=== PATIENT | male | born 1955 | race Caucasian/White ===

== ENCOUNTER 2017-08-18 11:34 | Inpatient (IN) | payer MEDICARE, MEDICAID ==
[2017-08-18 12:09] LABS: BASO # 0.1 K/uL (0.0-0.2); BASO % 1.3 % (0.0-2.0); EOS # 0.4 K/uL (0.0-0.7); EOS % 3.8 % (0.0-4.0); HEMOGLOBIN 12.9 g/dL (12.0-18.0); LYMPH # 1.4 K/uL (1.0-4.3); MEAN CELL VOLUME 84.1 fL (80.0-94.0); MEAN CORPUSCULAR HEMOGLOBIN 28.4 pg (27.0-31.0); MEAN CORPUSCULAR HGB CONC 33.8 g/dL (33.0-37.0); MEAN PLATELET VOLUME 6.9 fL (7.2-11.7); MONO # 0.9 K/uL (0.0-0.8); MONO % 8.6 % (0.0-10.0); NEUT # 7.7 K/uL (1.8-7.0); NEUT % 73.3 % (50.0-75.0); RBC 4.55 Mil/uL (4.40-5.90); RED CELL DISTRIBUTION WIDTH 15.5 % (11.5-14.5); WHITE BLOOD COUNT 10.5 K/uL (4.8-10.8)
[2017-08-18 12:30] LABS: ALB/GLOB RATIO 1.4 (1.0-2.1); ALT/SGPT 80 U/L (21-72); AST/SGOT 62 U/L (17-59); BLOOD UREA NITROGEN 10 mg/dL (9-20); GFR AFRICAN-AMERICAN > 60; GFR NON-AFRICAN AMERICAN > 60
[2017-08-18] MEDS ORDERED: Albuterol-Ipratrop 3 mg / 0.5 (3 ml) UD INH STA (12:31)
[2017-08-18] MEDS ORDERED: MethylPREDNISolone 40 mg Vial IVP STA (12:31)
[2017-08-18 12:36] LABS: B-TYPE NATRIURETIC PEPTIDE 5830 pg/mL (0-900)
[2017-08-18] MEDS ORDERED: MethylPREDNISolone 40 mg Vial ONE (12:37)
[2017-08-18] MEDS ORDERED: Albuterol-Ipratrop 3 mg / 0.5 (3 ml) UD ONE (12:46)
--- NOTE | 2017-08-18 13:10 | RAD ---
Chest x-ray single frontal view History: Shortness of breath. Comparison: None available. Findings: Small to moderate right pleural effusion with elevated right hemidiaphragm. Moderate venous congestion. Status post median sternotomy. Enlarged ectatic aorta. Cardiomegaly. Degenerative changes in the spine and shoulders. Impression: Small to moderate right pleural effusion with elevated right hemidiaphragm. Moderate venous congestion. Status post median sternotomy. Enlarged ectatic aorta. Cardiomegaly.
--- NOTE | 2017-08-18 14:55 | C.PDOC ---
History Of Present Illness 61 y/o male, w/PMHx of HTN and CHF with 2 stents, brought to ER by ambulance complaining of chest pain and SOB which began in the morning today. Patient states that he took Aspirin in the morning today. Patient denies having cough, fever and chills. Time Seen by Provider: 08/18/17 11:41 Chief Complaint (Nursing): Chest Pain History Per: Patient History/Exam Limitations: no limitations Onset/Duration Of Symptoms: Hrs Current Symptoms Are (Timing): Still Present Severity: Moderate Past Medical History Reviewed: Historical Data, Nursing Documentation, Vital Signs Vital Signs: Last Vital Signs Temp 97.4 F L 08/20/17 07:30 Pulse 111 H 08/20/17 11:40 Resp 18 08/20/17 07:30 BP 143/83 08/20/17 09:02 Pulse Ox 97 08/20/17 12:36 - Medical History PMH: Atrial Fibrillation, Bipolar Disorder, HTN, Hyperlipidemia Other Surgeries: Hx of surgeries Family History: States: Unknown Family Hx - Social History Hx Alcohol Use: Yes Hx Substance Use: No - Immunization History Hx Tetanus Toxoid Vaccination: No Hx Influenza Vaccination: No Hx Pneumococcal Vaccination: No Review Of Systems Except As Marked, All Systems Reviewed And Found Negative. Constitutional: Negative for: Fever, Chills Cardiovascular: Positive for: Chest Pain Respiratory: Positive for: Shortness of Breath. Negative for: Cough Physical Exam - Physical Exam Appears: Non-toxic, No Acute Distress Skin: Normal Color, Warm, Dry Head: Atraumatic, Normacephalic Eye(s): bilateral: Normal Inspection Nose: Normal Oral Mucosa: Moist Neck: Supple Chest: Symmetrical Cardiovascular: Murmur (3/6 systolic ejection murmur) Respiratory: Rales (rales at bilateral bases), No Rhonchi, Wheezing (wheezing at bilateral bases) Gastrointestinal/Abdominal: Normal Exam, Bowel Sounds ((+) bowel sounds), Soft, No Tenderness, No Guarding, No Rebound Extremity: Normal ROM, Other ((+) 2 bilateral pitting edema) Neurological/Psych: Oriented x3, Normal Speech ED Course And Treatment - Laboratory Results Result Diagrams: 08/20/17 07:14 08/20/17 07:14 ECG: Interpreted By Me, Viewed By Me ECG Rhythm: Atrial Fibrillation (rate conrolled) Interpretation Of ECG: Atrial Fibrillation with T wave inversion in Leads I, AVF , IV, VIII, and V O2 Sat by Pulse Oximetry: 99 (RA) Pulse Ox Interpretation: Normal - Other Rad CXR X-Ray: Viewed By Me, Read By Radiologist Interpretation: Chest x-ray single frontal view. History: Shortness of breath. Comparison: None available. Findings: Small to moderate right pleural effusion with elevated right hemidiaphragm. Moderate venous congestion. Status post median sternotomy. Enlarged ectatic aorta. Cardiomegaly. Degenerative changes in the spine and shoulders. Impression: Small to moderate right pleural effusion with elevated right hemidiaphragm. Moderate venous congestion. Status post median sternotomy. Enlarged ectatic aorta. Cardiomegaly. Medical Decision Making Medical Decision Making: Assessment: Chest Pain, Congestive Heart Failure Plan: --Labs --ECG --CXR --Albuterol --Nebulizer --Lasix IV --Solu-Medrol IV Plan: Case discussed with . Patient will be admitted to Telemetry Observation for chest pain and CHF. Disposition Discussed With Dr.: Cecy Carvalho Counseled Patient/Family Regarding: Studies Performed, Diagnosis - Disposition Disposition: HOSPITALIZED Disposition Time: 14:54 Condition: FAIR - Clinical Impression Clinical Impression: Chest pain, Congestive heart failure - Scribe Statement The provider has reviewed the documentation as recorded by the Dominguezibseth Pérez Provider Attestation: All medical record entries made by the Dominguezibe were at my direction and personally dictated by me. I have reviewed the chart and agree that the record accurately reflects my personal performance of the history, physical exam, medical decision making, and the department course for this patient. I have also personally directed, reviewed, and agree with the discharge instructions and disposition.
[2017-08-18] MEDS ORDERED: Home Med 1 UNIT (Atorvastatin [Lipitor] 80 MG) PO SCH (18:00)
[2017-08-18] MEDS: Albuterol-Ipratrop 3 mg / 0.5 (3 ml) UD IH SCH ×2 (19:10→19:11)
[2017-08-18 20:58] LABS: CK-MB 2.82 ng/mL (0.0-3.38); TROPONIN I 0.037 ng/mL (0.00-0.120)
[2017-08-18] MEDS: MethylPREDNISolone 40 mg Vial IVP SCH (21:33)
[2017-08-19] MEDS: Albuterol-Ipratrop 3 mg / 0.5 (3 ml) UD IH SCH ×4 (01:06→19:37)
[2017-08-19 06:13] LABS: HEMOGLOBIN 13.6 g/dL (12.0-18.0); MEAN CELL VOLUME 83.1 fL (80.0-94.0); MEAN CORPUSCULAR HEMOGLOBIN 27.8 pg (27.0-31.0); MEAN CORPUSCULAR HGB CONC 33.4 g/dL (33.0-37.0); MEAN PLATELET VOLUME 7.2 fL (7.2-11.7); RBC 4.9 Mil/uL (4.40-5.90); RED CELL DISTRIBUTION WIDTH 15.5 % (11.5-14.5); WHITE BLOOD COUNT 12.7 K/uL (4.8-10.8)
[2017-08-19] MEDS ORDERED: Potassium Chloride 20 mEq ER Tab PO SCH (10:00)
--- NOTE | 2017-08-19 10:11 | CP.PCM.CON ---
History of Present Illness - History of Present Illness History of Present Illness: Pulm Consult Note- Dr. Carolina's service 61 year old male with past medical history significant for CAD, Aortic valve replacement and Bipolar disorder presents with complaints of chest pain and shortness of breath. Patient states that he had a recent OK a few weeks prior. He states that he was experiencing an overall feeling of pressure and discomfort accompanied with shortness of breath which brought him to the hospital via ambulance. Patient denies fevers, chills, nausea, vomiting, headaches, palpitations at this time.(History limited by patient's tangential speech.) PMHx- as stated above PSHX- aortic valve replacement, cardiac stent placement Fam Hx- Father with history of aortic valve dysfunction Med- Lamictal, Klonopin, Benadryl, Social- admits to smoking 1 pack of cigarettes a day since the age of 19 Allergies- Denies Hydropulper- Sandra Acidity Tester PMD- Does not follow with PMD currently Review of Systems - EENT Eyes: absent: Blurred Vision, Change in Vision - Cardiovascular Cardiovascular: Chest Pain at Rest - Respiratory Respiratory: Dyspnea on Exertion - Gastrointestinal Gastrointestinal: absent: Nausea, Vomiting - Neurological Neurological: absent: Abnormal Hearing Past Patient History - Past Social History Smoking Status: Heavy Smoker > 10 Cigarettes Daily - CARDIAC Hx Atrial Fibrillation: Yes Hx Hypertension: Yes - PSYCHIATRIC Hx Bipolar Disorder: Yes Hx Substance Use: No Meds Allergies/Adverse Reactions: Allergies Allergy/AdvReac Type Severity Reaction Status Date / Time No Known Allergies Allergy Verified 08/18/17 11:44 - Medications Medications: Current Medications Albuterol/Ipratropium (Duoneb 3 Mg/0.5 Mg (3 Ml) Ud) 3 ml IH RQ6 [facility] Last Admin: 08/19/17 07:54 Dose: 3 ml Aspirin (Aspirin Chewable) 81 mg PO DAILY [facility] Clonazepam (Klonopin) 1 mg PO QPM [facility] Last Admin: 08/18/17 18:37 Dose: 1 mg Clopidogrel Bisulfate (Plavix) 75 mg PO DAILY [facility] Diltiazem HCl (Cardizem Cd) 120 mg PO DAILY [facility] Enoxaparin Sodium (Lovenox) 40 mg SC DAILY [facility] Famotidine (Pepcid) 40 mg PO DAILY [facility] Furosemide (Lasix) 40 mg IVP Q12 [facility] Last Admin: 08/18/17 21:34 Dose: 40 mg Isosorbide Mononitrate (Imdur Er) 30 mg PO DAILY [facility] Lamotrigine (Lamictal) 100 mg PO BID [facility] Last Admin: 08/18/17 18:37 Dose: 100 mg Methylprednisolone (Solu-Medrol) 40 mg IVP Q12 [facility] Last Admin: 08/18/17 21:33 Dose: 40 mg Metoprolol Tartrate (Lopressor) 100 mg PO BID [facility] Last Admin: 08/18/17 18:37 Dose: 100 mg Rosuvastatin Calcium (Crestor) 40 mg PO HS [facility] Last Admin: 08/18/17 21:33 Dose: 40 mg Physical Exam - Constitutional Appears: Non-toxic, No Acute Distress - Head Exam Head Exam: ATRAUMATIC, NORMAL INSPECTION - Eye Exam Eye Exam: EOMI, Normal appearance Pupil Exam: NORMAL ACCOMODATION - ENT Exam ENT Exam: Mucous Membranes Moist - Neck Exam Neck exam: Positive for: Full Rom - Respiratory Exam Respiratory Exam: NORMAL BREATHING PATTERN. absent: Wheezes - Cardiovascular Exam Cardiovascular Exam: Irregular Rhythm, +S1, +S2 Additional comments: Grade 3 murmur - Extremities Exam Additional comments: bounding pulses - Neurological Exam Neurological exam: Alert, Oriented x3 - Skin Skin Exam: Normal Color, Warm Results - Vital Signs Recent Vital Signs: Last Vital Signs Temp 98.0 F 08/19/17 07:00 Pulse 78 08/19/17 07:03 Resp 18 08/19/17 07:00 BP 151/82 H 08/19/17 07:00 Pulse Ox 95 08/19/17 07:00 - Labs Result Diagrams: 08/19/17 06:03 08/18/17 12:05 Labs: Laboratory Results - last 24 hr 08/18/17 08/18/17 08/18/17 12:05 12:05 13:50 WBC 10.5 RBC 4.55 Hgb 12.9 Hct 38.3 MCV 84.1 MCH 28.4 MCHC 33.8 RDW 15.5 H Plt Count 303 MPV 6.9 L Neut % (Auto) 73.3 Lymph % (Auto) 13.0 L Long % (Auto) 8.6 Eos % (Auto) 3.8 Baso % (Auto) 1.3 Neut # (Auto) 7.7 H Lymph # (Auto) 1.4 Long # (Auto) 0.9 H Eos # (Auto) 0.4 Baso # (Auto) 0.1 Sodium 132 Potassium 5.7 H Chloride 97 L Carbon Dioxide 26 Anion Gap 15 BUN 10 Creatinine 0.9 Est GFR ( Amer) > 60 Est GFR (Non-Af Amer) > 60 Random Glucose 123 H Hemoglobin A1c Calcium 9.0 Total Bilirubin 1.1 AST 62 H ALT 80 H Alkaline Phosphatase 89 Total Creatine Kinase CK-MB (Mass) Troponin I 0.0570 NT-Pro-B Natriuret Pep 5830 H Total Protein 6.9 Albumin 4.0 Globulin 2.9 Albumin/Globulin Ratio 1.4 Triglycerides Cholesterol LDL Cholesterol Direct HDL Cholesterol TSH 3rd Generation Digoxin 3.1 H* 08/18/17 08/18/17 08/19/17 20:18 20:18 06:03 WBC 12.7 H RBC 4.90 Hgb 13.6 Hct 40.7 MCV 83.1 MCH 27.8 MCHC 33.4 RDW 15.5 H Plt Count 283 MPV 7.2 Neut % (Auto) Lymph % (Auto) Long % (Auto) Eos % (Auto) Baso % (Auto) Neut # (Auto) Lymph # (Auto) Long # (Auto) Eos # (Auto) Baso # (Auto) Sodium Potassium Chloride Carbon Dioxide Anion Gap BUN Creatinine Est GFR ( Amer) Est GFR (Non-Af Amer) Random Glucose Hemoglobin A1c 5.9 Calcium Total Bilirubin AST ALT Alkaline Phosphatase Total Creatine Kinase 64 CK-MB (Mass) 2.82 Troponin I 0.0370 NT-Pro-B Natriuret Pep Total Protein Albumin Globulin Albumin/Globulin Ratio Triglycerides 51 Cholesterol 138 LDL Cholesterol Direct 100 HDL Cholesterol 28 L TSH 3rd Generation Digoxin 08/19/17 06:03 WBC RBC Hgb Hct MCV MCH MCHC RDW Plt Count MPV Neut % (Auto) Lymph % (Auto) Long % (Auto) Eos % (Auto) Baso % (Auto) Neut # (Auto) Lymph # (Auto) Long # (Auto) Eos # (Auto) Baso # (Auto) Sodium Potassium Chloride Carbon Dioxide Anion Gap BUN Creatinine Est GFR ( Amer) Est GFR (Non-Af Amer) Random Glucose Hemoglobin A1c Calcium Total Bilirubin AST ALT Alkaline Phosphatase Total Creatine Kinase CK-MB (Mass) Troponin I NT-Pro-B Natriuret Pep Total Protein Albumin Globulin Albumin/Globulin Ratio Triglycerides Cholesterol LDL Cholesterol Direct HDL Cholesterol TSH 3rd Generation 0.38 L Digoxin Assessment & Plan - Assessment and Plan (Free Text) Assessment: Dyspnea Assessment and Plan: CXR- Small to moderate right pleural effusion with elevated right hemidiaphragm On Lasix 40 mg IV Q12. May need to repeat CXR study Ivonne Solumedrol Status: Acute Atrial fibrillation Assessment and Plan: Patient has history of Atrial fibrillation and is rate controlled on metoprolol. Dig level elevated- Could be contributing to presentation Status: Acute CAD (coronary artery disease) Assessment and Plan: S/P stent placement On Plavix, statin Status: Acute Systolic Murmur Assessment and Plan: Elevated BNP F/U echo Status: Acute Bipolar Disorder Assessment and Plan: On Lamictal Cont home meds
[2017-08-19] MEDS: diltiaZEM 120 mg/24 Hours CD Cap PO SCH (10:51)
[2017-08-19] MEDS: MethylPREDNISolone 40 mg Vial IVP SCH ×2 (10:52→21:02)
--- NOTE | 2017-08-19 10:52 | CP.PCM.CON ---
History of Present Illness - History of Present Illness History of Present Illness: Patient with history of CAD, S/P Stent who came to hospital with chest pain and SOB. Sitting in bed watching TV without any distress. Past Patient History - Past Social History Smoking Status: Heavy Smoker > 10 Cigarettes Daily - CARDIAC Hx Atrial Fibrillation: Yes Hx Hypertension: Yes - PSYCHIATRIC Hx Bipolar Disorder: Yes Hx Substance Use: No Meds Allergies/Adverse Reactions: Allergies Allergy/AdvReac Type Severity Reaction Status Date / Time No Known Allergies Allergy Verified 08/18/17 11:44 - Medications Medications: Current Medications Albuterol/Ipratropium (Duoneb 3 Mg/0.5 Mg (3 Ml) Ud) 3 ml IH RQ6 [facility] Last Admin: 08/19/17 07:54 Dose: 3 ml Aspirin (Aspirin Chewable) 81 mg PO DAILY [facility] Clonazepam (Klonopin) 1 mg PO QPM [facility] Last Admin: 08/18/17 18:37 Dose: 1 mg Clopidogrel Bisulfate (Plavix) 75 mg PO DAILY [facility] Diltiazem HCl (Cardizem Cd) 120 mg PO DAILY [facility] Enoxaparin Sodium (Lovenox) 40 mg SC DAILY [facility] Famotidine (Pepcid) 40 mg PO DAILY [facility] Furosemide (Lasix) 40 mg IVP Q12 [facility] Last Admin: 08/18/17 21:34 Dose: 40 mg Isosorbide Mononitrate (Imdur Er) 30 mg PO DAILY [facility] Lamotrigine (Lamictal) 100 mg PO BID [facility] Last Admin: 08/18/17 18:37 Dose: 100 mg Methylprednisolone (Solu-Medrol) 40 mg IVP Q12 [facility] Last Admin: 08/18/17 21:33 Dose: 40 mg Metoprolol Tartrate (Lopressor) 100 mg PO BID [facility] Last Admin: 08/18/17 18:37 Dose: 100 mg Rosuvastatin Calcium (Crestor) 40 mg PO HS [facility] Last Admin: 08/18/17 21:33 Dose: 40 mg Physical Exam - Head Exam Head Exam: NORMOCEPHALIC - Neck Exam Neck exam: Positive for: Normal Inspection - Respiratory Exam Respiratory Exam: NORMAL BREATHING PATTERN - Cardiovascular Exam Cardiovascular Exam: Irregular Rhythm, Systolic Murmur - Extremities Exam Extremities exam: Positive for: normal inspection - Neurological Exam Neurological exam: Alert, Oriented x3 Results - Vital Signs Recent Vital Signs: Last Vital Signs Temp 98.0 F 08/19/17 07:00 Pulse 78 08/19/17 07:03 Resp 18 08/19/17 07:00 BP 151/82 H 08/19/17 07:00 Pulse Ox 95 08/19/17 07:00 - Labs Result Diagrams: 08/19/17 06:03 08/18/17 12:05 Labs: Laboratory Results - last 24 hr 08/18/17 08/18/17 08/18/17 12:05 12:05 13:50 WBC 10.5 RBC 4.55 Hgb 12.9 Hct 38.3 MCV 84.1 MCH 28.4 MCHC 33.8 RDW 15.5 H Plt Count 303 MPV 6.9 L Neut % (Auto) 73.3 Lymph % (Auto) 13.0 L [place] % (Auto) 8.6 Eos % (Auto) 3.8 Baso % (Auto) 1.3 Neut # (Auto) 7.7 H Lymph # (Auto) 1.4 [place] # (Auto) 0.9 H Eos # (Auto) 0.4 Baso # (Auto) 0.1 Sodium 132 Potassium 5.7 H Chloride 97 L Carbon Dioxide 26 Anion Gap 15 BUN 10 Creatinine 0.9 Est GFR ( Amer) > 60 Est GFR (Non-Af Amer) > 60 Random Glucose 123 H Hemoglobin A1c Calcium 9.0 Total Bilirubin 1.1 AST 62 H ALT 80 H Alkaline Phosphatase 89 Total Creatine Kinase CK-MB (Mass) Troponin I 0.0570 NT-Pro-B Natriuret Pep 5830 H Total Protein 6.9 Albumin 4.0 Globulin 2.9 Albumin/Globulin Ratio 1.4 Triglycerides Cholesterol LDL Cholesterol Direct HDL Cholesterol TSH 3rd Generation Digoxin 3.1 H* 08/18/17 08/18/17 08/19/17 20:18 20:18 06:03 WBC 12.7 H RBC 4.90 Hgb 13.6 Hct 40.7 MCV 83.1 MCH 27.8 MCHC 33.4 RDW 15.5 H Plt Count 283 MPV 7.2 Neut % (Auto) Lymph % (Auto) [place] % (Auto) Eos % (Auto) Baso % (Auto) Neut # (Auto) Lymph # (Auto) [place] # (Auto) Eos # (Auto) Baso # (Auto) Sodium Potassium Chloride Carbon Dioxide Anion Gap BUN Creatinine Est GFR ( Amer) Est GFR (Non-Af Amer) Random Glucose Hemoglobin A1c 5.9 Calcium Total Bilirubin AST ALT Alkaline Phosphatase Total Creatine Kinase 64 CK-MB (Mass) 2.82 Troponin I 0.0370 NT-Pro-B Natriuret Pep Total Protein Albumin Globulin Albumin/Globulin Ratio Triglycerides 51 Cholesterol 138 LDL Cholesterol Direct 100 HDL Cholesterol 28 L TSH 3rd Generation Digoxin 08/19/17 06:03 WBC RBC Hgb Hct MCV MCH MCHC RDW Plt Count MPV Neut % (Auto) Lymph % (Auto) [place] % (Auto) Eos % (Auto) Baso % (Auto) Neut # (Auto) Lymph # (Auto) [place] # (Auto) Eos # (Auto) Baso # (Auto) Sodium Potassium Chloride Carbon Dioxide Anion Gap BUN Creatinine Est GFR ( Amer) Est GFR (Non-Af Amer) Random Glucose Hemoglobin A1c Calcium Total Bilirubin AST ALT Alkaline Phosphatase Total Creatine Kinase CK-MB (Mass) Troponin I NT-Pro-B Natriuret Pep Total Protein Albumin Globulin Albumin/Globulin Ratio Triglycerides Cholesterol LDL Cholesterol Direct HDL Cholesterol TSH 3rd Generation 0.38 L Digoxin Assessment & Plan (1) Atrial fibrillation Assessment and Plan: Patient has history of ATrial fibrillation and is on medication. His Dogoxine level is high and may be contributing. Hold Digoxin. Continue cardizem adn increase as tolerated, Status: Acute (2) CAD (coronary artery disease) Assessment and Plan: S/P PTCA/Stent. DAPT compliance. Status: Acute (3) Chest pain Assessment and Plan: Reso;horacio. Troponin negative so far/ Echocardiogarm to assess LV systolic function. Status: Acute (4) Congestive heart failure Assessment and Plan: Resolved Infection and RVR may be a contributing factor. Change lasix to PO/ Fluid restriction to 1.5 L/day.Discussed with team. Status: Acute
[2017-08-19] MEDS: Enoxaparin 40 mg Syringe SC SCH (11:10)
--- NOTE | 2017-08-19 19:53 | CP.PCM.CON ---
History of Present Illness - History of Present Illness History of Present Illness: Pulmonary Evaluation, Covering Dr. Carolina The patient was Seen/Interviewed and examined by me at the bedside, Events reviewed 61 Years old Male with PMHx OF HTN, Hyperlipidemia, CHF, CAD S/P Stents, Atrial Fibrillation and Bipolar Disorder Who was brought to ER by ambulance complaining of chest pain and worsening SOB which began in the morning. Patient denies having cough, fever and chills. CXR- Small to moderate right pleural effusion with elevated right hemidiaphragm Pt on Lasix 40 mg IV Q12, Solu-Medrol 40 mg IVP Q12 and Nabulizers He is feeling better today Patient confortable, NAD VSS, Saturating well and not wheezing. Patient alert, awake, he is not any apparent distress May need to repeat CXR study Estella Coronadoumedrol Review of Systems - Constitutional Constitutional: absent: Chills, Daytime Sleepiness, Excessive Sweating, Fatigue , Fever, Frequent Falls - Cardiovascular Cardiovascular: absent: Chest Pain, Chest Pain at Rest, Chest Pain with Activity , Claudication, Diaphoresis - Respiratory Respiratory: Cough, Dyspnea, Dyspnea on Exertion. absent: Hemoptysis, Wheezing , Snoring, Stridor Past Patient History - Past Social History Smoking Status: Heavy Smoker > 10 Cigarettes Daily - CARDIAC Hx Atrial Fibrillation: Yes Hx Hypertension: Yes - PSYCHIATRIC Hx Bipolar Disorder: Yes Hx Substance Use: No Meds Allergies/Adverse Reactions: Allergies Allergy/AdvReac Type Severity Reaction Status Date / Time No Known Allergies Allergy Verified 08/18/17 11:44 - Medications Medications: Current Medications Albuterol/Ipratropium (Duoneb 3 Mg/0.5 Mg (3 Ml) Ud) 3 ml RQ6 [facility] Last Admin: 08/19/17 19:37 Dose: 3 ml Aspirin (Aspirin Chewable) 81 mg PO DAILY [facility] Last Admin: 08/19/17 10:51 Dose: 81 mg Clonazepam (Klonopin) 1 mg PO [facility] PRN Reason: Protocol Clopidogrel Bisulfate (Plavix) 75 mg PO DAILY [facility] Last Admin: 08/19/17 10:51 Dose: 75 mg Diltiazem HCl (Cardizem Cd) 120 mg PO DAILY [facility] Last Admin: 08/19/17 10:51 Dose: 120 mg Diphenhydramine HCl (Benadryl) 25 mg PO [facility] Enoxaparin Sodium (Lovenox) 40 mg SC DAILY [facility] Last Admin: 08/19/17 11:10 Dose: 40 mg Famotidine (Pepcid) 40 mg PO DAILY [facility] Last Admin: 08/19/17 10:51 Dose: 40 mg Furosemide (Lasix) 40 mg IVP Q12 [facility] Last Admin: 08/19/17 10:52 Dose: 40 mg Isosorbide Mononitrate (Imdur Er) 30 mg PO DAILY [facility] Last Admin: 08/19/17 10:52 Dose: 30 mg Lamotrigine (Lamictal) 100 mg PO BID [facility] Last Admin: 08/19/17 17:35 Dose: 100 mg Methylprednisolone (Solu-Medrol) 40 mg IVP Q12 [facility] Last Admin: 08/19/17 10:52 Dose: 40 mg Metoprolol Tartrate (Lopressor) 100 mg PO BID [facility] Last Admin: 08/19/17 17:35 Dose: 100 mg Rosuvastatin Calcium (Crestor) 40 mg PO [facility] Last Admin: 08/18/17 21:33 Dose: 40 mg Physical Exam - Constitutional Appears: Well, Non-toxic - Head Exam Head Exam: ATRAUMATIC, NORMAL INSPECTION - Eye Exam Eye Exam: EOMI. absent: Conjunctival injection Pupil Exam: NORMAL ACCOMODATION, PERRL - ENT Exam ENT Exam: Mucous Membranes Moist - Neck Exam Neck exam: Positive for: Full Rom, Normal Inspection. Negative for: Lymphadenopathy, Meningismus, Tenderness, Thyromegaly - Respiratory Exam Respiratory Exam: Decreased Breath Sounds, Prolonged Expiratory Phase, Wheezes. absent: Accessory Muscle Use, Chest Wall Tenderness, Clear to Auscultation Bilateral, Rales, Rhonchi - Cardiovascular Exam Cardiovascular Exam: REGULAR RHYTHM, RRR, +S1, +S2. absent: Bradycardia, Tachycardia, JVD - GI/Abdominal Exam GI & Abdominal Exam: Normal Bowel Sounds, Soft. absent: Bruit, Distended, Firm , Guarding, Hernia, Hypoactive Bowel Sounds, Rigid, Tenderness - Extremities Exam Extremities exam: Positive for: full ROM, normal capillary refill, normal inspection, pedal pulses present. Negative for: calf tenderness, joint swelling , pedal edema, tenderness - Back Exam Back exam: absent: CVA tenderness (L), CVA tenderness (R) - Neurological Exam Neurological exam: Alert, CN II-XII Intact, Motor Sensory Deficit, Normal Gait, Oriented x3, Reflexes Normal Results - Vital Signs Recent Vital Signs: Last Vital Signs Temp 97.7 F 08/19/17 15:00 Pulse 102 H 08/19/17 15:45 Resp 20 08/19/17 15:00 BP 117/78 08/19/17 15:00 Pulse Ox 98 08/19/17 19:00 - Labs Result Diagrams: 08/19/17 06:03 08/18/17 12:05 Labs: Laboratory Results - last 24 hr 08/18/17 08/18/17 08/19/17 20:18 20:18 06:03 WBC 12.7 H RBC 4.90 Hgb 13.6 Hct 40.7 MCV 83.1 MCH 27.8 MCHC 33.4 RDW 15.5 H Plt Count 283 MPV 7.2 Hemoglobin A1c 5.9 Total Creatine Kinase 64 CK-MB (Mass) 2.82 Troponin I 0.0370 Triglycerides 51 Cholesterol 138 LDL Cholesterol Direct 100 HDL Cholesterol 28 L TSH 3rd Generation 08/19/17 06:03 WBC RBC Hgb Hct MCV MCH MCHC RDW Plt Count MPV Hemoglobin A1c Total Creatine Kinase CK-MB (Mass) Troponin I Triglycerides Cholesterol LDL Cholesterol Direct HDL Cholesterol TSH 3rd Generation 0.38 L Assessment & Plan (1) Pleural effusion due to CHF (congestive heart failure) Assessment and Plan: Congestive heart failure with plerual effusions. No clinical evidance of Pulmonary infection Patient might also have COPD, Full PFT out patient ehen he back to base line Continue Lasix 40 mg IV Q12 Continue Solu-Medrol 40 mg IVP Q12 and Start taperin in if continue improving Nabulizers CXR (PA/Lat) in AM Will consider performing diagnostic/therapeutic tap if effusion persists despite significant diuresis/weight loss, or if respiratory compromise and/or signs or sx's of infection develops. Status: Acute Priority: High (2) Atrial fibrillation Status: Acute Priority: High (3) Congestive heart failure Status: Acute (4) Bipolar 1 disorder Status: Acute
[2017-08-20] MEDS: Albuterol-Ipratrop 3 mg / 0.5 (3 ml) UD IH SCH ×4 (01:05→19:31)
[2017-08-20 07:29] LABS: HEMOGLOBIN 14.3 g/dL (12.0-18.0); MEAN CELL VOLUME 83.3 fL (80.0-94.0); MEAN CORPUSCULAR HEMOGLOBIN 28.4 pg (27.0-31.0); MEAN CORPUSCULAR HGB CONC 34.1 g/dL (33.0-37.0); MEAN PLATELET VOLUME 7.6 fL (7.2-11.7); RBC 5.03 Mil/uL (4.40-5.90)
[2017-08-20 07:34] LABS: WHITE BLOOD COUNT 27.2 K/uL (4.8-10.8)
[2017-08-20 07:43] LABS: BLOOD UREA NITROGEN 29 mg/dL (9-20); CALCIUM 9.7 mg/dl (8.6-10.4); GFR AFRICAN-AMERICAN > 60; GFR NON-AFRICAN AMERICAN > 60
[2017-08-20 07:44] LABS: BLOOD UREA NITROGEN 29 mg/dL (9-20); CALCIUM 9.7 mg/dl (8.6-10.4); GFR AFRICAN-AMERICAN > 60; GFR NON-AFRICAN AMERICAN > 60; HDL CHOLESTEROL 32 mg/dL (30-70); IRON 42 ug/dL (49-181)
[2017-08-20 07:53] LABS: LDL CHOLESTEROL 107 mg/dL (0-129)
[2017-08-20 07:56] LABS: % IRON SATURATION 9 (20-55); TOTAL IRON BINDING CAPACITY 473 ug/dL (250-450)
--- NOTE | 2017-08-20 07:57 | HP ---
CHIEF COMPLAINT: Chest pain and shortness of breath. HISTORY OF PRESENT ILLNESS: Mr. Bryan Browne is a 61-year-old male with past medical history of hypertension, congestive heart failure with history of stents, brought to the ER by the ambulance, complaining of chest pain and shortness of breath which began in the morning of the day of admission. The patient states that he took aspirin in the morning, and the patient denies any cough, fever, chills, nausea, vomiting, or diarrhea. No hematuria, no hematochezia. No headache or dizziness. PAST MEDICAL HISTORY: Atrial fibrillation, bipolar, hypertension, hypercholesteremia. PAST SURGICAL HISTORY: No history of surgeries. SOCIAL HISTORY: Alcohol, yes. Substance abuse, no. Smoking, no. FAMILY HISTORY: Father and mother, noncontributory. REVIEW OF SYSTEMS: The patient was seen and examined at the bedside, looking comfortable. Alert and oriented. At that moment, no chest pain, no shortness of breath. No headache or dizziness. No hematuria or hematochezia. PHYSICAL EXAMINATION: VITAL SIGNS: Temperature 97.9, pulse 56, respiratory rate of 31, blood pressure 124/58. HEENT: Head is normocephalic, atraumatic. Eyes, PERRLA. Extraocular muscles intact. Conjunctivae clear. Nose patent. Mucous membranes moist. NECK: Supple. No carotid bruits. No JVD or thyromegaly. CHEST: Bilaterally symmetrical. HEART: S1 and S2 positive. LUNGS: Clear to auscultation. ABDOMEN: Soft. Bowel sounds present. No organomegaly. EXTREMITIES: +2 bilateral pitting edema. NEUROLOGICAL: The patient is awake and alert, oriented x3. LABORATORY DATA: White blood cells 10.5, hemoglobin 12.9, hematocrit 33.2, platelets 203. Sodium 132, potassium 5.7, BUN 10, creatinine 0.9, and glucose 123. ASSESSMENT AND PLAN: Mr. Bryan Browne is a 61-year-old male with hyperkalemia, hyperglycemia, atrial fibrillation, came with chest pain, congestive heart failure, history of bipolar, hypertension, hypercholesterolemia. We admitted the patient, called cardiology consult by Dr. Claudy Arriola, seen by the manufacturing quality manager for shortness of breath, pleural effusion, and due to congestive heart failure. No clinical evidence of pulmonary infection. Due to patient's chronic obstructive pulmonary disease, full pulmonary function test outpatient needed. Continue on Lasix IV, Solu-Medrol IV, with tapering doses, and continue nebulizer. Coronary artery disease, status post percutaneous transluminal coronary angioplasty and stenting. Dual antiplatelet therapy compliance. Troponin negative. Digital echocardiography to assess left ventricular systolic function. Discussion done with the patient and patient's nursing staff. Gastrointestinal and deep venous thrombosis prophylaxis. Repeat labs. We will follow up. Cecy Carvalho MD [facility]
[2017-08-20 08:51] LABS: FOLATE 10.7 ng/mL
[2017-08-20] MEDS: Enoxaparin 40 mg Syringe SC SCH (09:02)
[2017-08-20] MEDS: MethylPREDNISolone 40 mg Vial IVP SCH ×2 (09:02→21:32)
[2017-08-20] MEDS: diltiaZEM 120 mg/24 Hours CD Cap PO SCH (09:03)
--- NOTE | 2017-08-20 09:49 | CP.PCM.PN ---
<Santino Caputo - Last Filed: 08/20/17 15:04> Subjective - Date & Time of Evaluation Date of Evaluation: 08/20/17 Time of Evaluation: 13:33 - Subjective Subjective: Pulmonology Progress Note- Dr. Carolina's service Patient seen and examined in no apparent acute distress. Patient states that his breathing is improved. Patient is tangential in speech but can be redirected. No other significant complaints. Objective - Vital Signs/Intake and Output Vital Signs (last 24 hours): Temp Pulse Resp BP Pulse Ox 97.4 F L 98 H 18 143/83 97 08/20/17 07:30 08/20/17 07:30 08/20/17 07:30 08/20/17 09:02 08/20/17 08:52 - Medications Medications: Current Medications Albuterol/Ipratropium (Duoneb 3 Mg/0.5 Mg (3 Ml) Ud) 3 ml IH RQ6 [facility] Last Admin: 08/20/17 07:55 Dose: 3 ml Aspirin (Aspirin Chewable) 81 mg PO DAILY [facility] Last Admin: 08/20/17 09:03 Dose: 81 mg Clonazepam (Klonopin) 1 mg PO [facility] PRN Reason: Protocol Last Admin: 08/19/17 21:03 Dose: Not Given Clopidogrel Bisulfate (Plavix) 75 mg PO DAILY [facility] Last Admin: 08/20/17 09:03 Dose: 75 mg Diltiazem HCl (Cardizem Cd) 120 mg PO DAILY [facility] Last Admin: 08/20/17 09:03 Dose: 120 mg Diphenhydramine HCl (Benadryl) 25 mg PO HS [facility] Last Admin: 08/19/17 21:02 Dose: 25 mg Enoxaparin Sodium (Lovenox) 40 mg SC DAILY [facility] Last Admin: 08/20/17 09:02 Dose: 40 mg Famotidine (Pepcid) 40 mg PO DAILY [facility] Last Admin: 08/20/17 09:02 Dose: 40 mg Furosemide (Lasix) 40 mg IVP Q12 [facility] Last Admin: 08/20/17 09:02 Dose: 40 mg Isosorbide Mononitrate (Imdur Er) 30 mg PO DAILY [facility] Last Admin: 08/19/17 10:52 Dose: 30 mg Lamotrigine (Lamictal) 100 mg PO BID [facility] Last Admin: 08/19/17 17:35 Dose: 100 mg Methylprednisolone (Solu-Medrol) 40 mg IVP Q12 [facility] Last Admin: 08/20/17 09:02 Dose: 40 mg Metoprolol Tartrate (Lopressor) 100 mg PO BID [facility] Last Admin: 08/20/17 09:03 Dose: 100 mg Rosuvastatin Calcium (Crestor) 40 mg PO HS [facility] Last Admin: 08/19/17 21:02 Dose: 40 mg - Labs Labs: 08/20/17 07:14 08/20/17 07:14 - Constitutional Appears: Non-toxic, No Acute Distress - Head Exam Head Exam: ATRAUMATIC, NORMAL INSPECTION - Eye Exam Eye Exam: EOMI, Normal appearance - ENT Exam ENT Exam: Mucous Membranes Moist - Neck Exam Neck Exam: Full ROM - Respiratory Exam Respiratory Exam: absent: Wheezes - Cardiovascular Exam Cardiovascular Exam: Irregular Rhythm, +S1, +S2, Murmur. absent: REGULAR RHYTHM Additional comments: grade 3/6 murmur - GI/Abdominal Exam GI & Abdominal Exam: Soft, Normal Bowel Sounds - Extremities Exam Extremities Exam: Full ROM - Back Exam Back Exam: Full ROM - Neurological Exam Neurological Exam: Alert, Awake - Psychiatric Exam Psychiatric exam: Normal Affect, Normal Mood - Skin Skin Exam: Dry, Normal Color, Warm Assessment and Plan - Assessment and Plan (Free Text) Assessment: Leukocytosis Assessment and Plan: May be increased secondarily to solumedrol dosing Check CBC with diff tomorrow Monitor Status: Acute Dyspnea Assessment and Plan: CXR- Small to moderate right pleural effusion with elevated right hemidiaphragm On Lasix 40 mg IV Q12. Duonebs, Solumedrol Status: Acute Atrial fibrillation Assessment and Plan: Needs better rate control May need to increase beta mack or consider cardioverting patient Status: Acute CAD (coronary artery disease) Assessment and Plan: S/P stent placement On Plavix, statin Status: Acute Systolic Murmur Assessment and Plan: Elevated BNP F/U echo Status: Acute Bipolar Disorder Assessment and Plan: On Lamictal Cont home meds <Nav Carolina S - Last Filed: 08/20/17 16:49> Objective - Vital Signs/Intake and Output Vital Signs (last 24 hours): Temp Pulse Resp BP Pulse Ox 97.4 F L 111 H 18 143/83 99 08/20/17 07:30 08/20/17 11:40 08/20/17 07:30 08/20/17 09:02 08/20/17 15:25 - Medications Medications: Current Medications Albuterol/Ipratropium (Duoneb 3 Mg/0.5 Mg (3 Ml) Ud) 3 ml IH RQ6 [facility] Last Admin: 08/20/17 13:27 Dose: 3 ml Aspirin (Aspirin Chewable) 81 mg PO DAILY [facility] Last Admin: 08/20/17 09:03 Dose: 81 mg Clonazepam (Klonopin) 1 mg PO [facility] PRN Reason: Protocol Last Admin: 08/19/17 21:03 Dose: Not Given Clopidogrel Bisulfate (Plavix) 75 mg PO DAILY [facility] Last Admin: 08/20/17 09:03 Dose: 75 mg Diltiazem HCl (Cardizem Cd) 240 mg PO DAILY [facility] Diphenhydramine HCl (Benadryl) 25 mg PO HS [facility] Last Admin: 08/19/17 21:02 Dose: 25 mg Enoxaparin Sodium (Lovenox) 40 mg SC DAILY [facility] Last Admin: 08/20/17 09:02 Dose: 40 mg Famotidine (Pepcid) 40 mg PO DAILY [facility] Last Admin: 08/20/17 09:02 Dose: 40 mg Furosemide (Lasix) 40 mg IVP Q12 [facility] Last Admin: 08/20/17 09:02 Dose: 40 mg Isosorbide Mononitrate (Imdur Er) 30 mg PO DAILY [facility] Last Admin: 08/20/17 11:30 Dose: 30 mg Lamotrigine (Lamictal) 100 mg PO BID [facility] Last Admin: 08/20/17 11:31 Dose: 100 mg Methylprednisolone (Solu-Medrol) 40 mg IVP Q12 [facility] Last Admin: 08/20/17 09:02 Dose: 40 mg Metoprolol Tartrate (Lopressor) 100 mg PO BID [facility] Last Admin: 08/20/17 09:03 Dose: 100 mg Rosuvastatin Calcium (Crestor) 40 mg PO HS [facility] Last Admin: 08/19/17 21:02 Dose: 40 mg - Labs Labs: 08/20/17 07:14 08/20/17 07:14 Attending/Attestation - Attestation I have personally seen and examined this patient.: Yes I have fully participated in the care of the patient.: Yes I have reviewed all pertinent clinical information, including history, physical exam and plan: Yes Notes (Text): 08/20/17 16:48 patient seen and examined continue treatment for CHF with Lasix On Cardizem for rate control Elevated digoxin level
--- NOTE | 2017-08-20 11:29 | RAD ---
HISTORY: Pleural effusion COMPARISON: Chest radiograph dated 08/18/2017. TECHNIQUE: Chest PA and lateral FINDINGS: LUNGS: Basilar atelectasis. PLEURA: Small right pleural effusion. Questionable trace left pleural effusion. No pneumothorax apparent. CARDIOVASCULAR: Prior sternotomy with sternal wires and surgical clips redemonstrated. Atherosclerotic aortic calcifications. Cardiomediastinal silhouette stably enlarged. OSSEOUS STRUCTURES: Unchanged. VISUALIZED UPPER ABDOMEN: Normal. OTHER FINDINGS: None. IMPRESSION: Small right and questionable trace left pleural effusions. .
--- NOTE | 2017-08-20 12:39 | CP.PCM.PN ---
Subjective - Date & Time of Evaluation Date of Evaluation: 08/20/17 Time of Evaluation: 12:39 - Subjective Subjective: No news complaints. Objective - Vital Signs/Intake and Output Vital Signs (last 24 hours): Temp Pulse Resp BP Pulse Ox 97.4 F L 111 H 18 143/83 97 08/20/17 07:30 08/20/17 11:40 08/20/17 07:30 08/20/17 09:02 08/20/17 12:36 - Medications Medications: Current Medications Albuterol/Ipratropium (Duoneb 3 Mg/0.5 Mg (3 Ml) Ud) 3 ml IH RQ6 [facility] Last Admin: 08/20/17 07:55 Dose: 3 ml Aspirin (Aspirin Chewable) 81 mg PO DAILY [facility] Last Admin: 08/20/17 09:03 Dose: 81 mg Clonazepam (Klonopin) 1 mg PO [facility] PRN Reason: Protocol Last Admin: 08/19/17 21:03 Dose: Not Given Clopidogrel Bisulfate (Plavix) 75 mg PO DAILY [facility] Last Admin: 08/20/17 09:03 Dose: 75 mg Diltiazem HCl (Cardizem Cd) 120 mg PO DAILY [facility] Last Admin: 08/20/17 09:03 Dose: 120 mg Diphenhydramine HCl (Benadryl) 25 mg PO HS [facility] Last Admin: 08/19/17 21:02 Dose: 25 mg Enoxaparin Sodium (Lovenox) 40 mg SC DAILY [facility] Last Admin: 08/20/17 09:02 Dose: 40 mg Famotidine (Pepcid) 40 mg PO DAILY [facility] Last Admin: 08/20/17 09:02 Dose: 40 mg Furosemide (Lasix) 40 mg IVP Q12 [facility] Last Admin: 08/20/17 09:02 Dose: 40 mg Isosorbide Mononitrate (Imdur Er) 30 mg PO DAILY [facility] Last Admin: 08/20/17 11:30 Dose: 30 mg Lamotrigine (Lamictal) 100 mg PO BID [facility] Last Admin: 08/20/17 11:31 Dose: 100 mg Methylprednisolone (Solu-Medrol) 40 mg IVP Q12 [facility] Last Admin: 08/20/17 09:02 Dose: 40 mg Metoprolol Tartrate (Lopressor) 100 mg PO BID [facility] Last Admin: 08/20/17 09:03 Dose: 100 mg Rosuvastatin Calcium (Crestor) 40 mg PO HS [facility] Last Admin: 08/19/17 21:02 Dose: 40 mg - Labs Labs: 08/20/17 07:14 08/20/17 07:14 - Head Exam Head Exam: NORMOCEPHALIC - Neck Exam Neck Exam: Normal Inspection - Respiratory Exam Respiratory Exam: NORMAL BREATHING PATTERN - Cardiovascular Exam Cardiovascular Exam: Irregular Rhythm - Extremities Exam Extremities Exam: Normal Inspection - Neurological Exam Neurological Exam: Alert Assessment and Plan (1) Atrial fibrillation Assessment & Plan: Rate control and Anticoagulation. Status: Acute (2) CAD (coronary artery disease) Assessment & Plan: Stable, reviewed Echo. Normal LV systolic function with MR/AR and . Medical management for now. Status: Acute (3) Chest pain Assessment & Plan: Resolved, work-up negative so far. Status: Acute (4) Congestive heart failure Assessment & Plan: Improved, Diastolic dysfunction. Fluid restriction with electrolyte balance with diuretics. Status: Acute
--- NOTE | 2017-08-20 17:17 | CARD ---
APPROVED REPORT EXAM: Two-dimensional and M-mode echocardiogram with Doppler and color Doppler. Other Information Quality : GoodRhythm : INDICATION Dyspnea Chest Pain Congestive Heart Failure RISK FACTORS Hypertension 2D DIMENSIONS IVSd1.5 (0.7-1.1cm)LVDd5.0 (3.9-5.9cm) LVOT Diameter1.9 (1.8-2.4cm)PWd1.6 (0.7-1.1cm) LVDs3.9 (2.5-4.0cm)FS (%) 21.8 % M-Mode DIMENSIONS RVDd1.95 (2.1-3.2cm)Left Atrium (MM)5.20 (2.5-4.0cm) IVSd1.88 (0.7-1.1cm)Aortic Root3.41 (2.2-3.7cm) LVDd5.64 (4.0-5.6cm)Aortic Cusp Exc.2.00 (1.5-2.0cm) PWd1.50 (0.7-1.1cm)FS (%) 34 % LVDs3.72 (2.0-3.8cm) Aortic Valve AoV Peak Dljmnacr955.6cm/sAoV VTI79.0cmAO Peak GR.67mmHg LVOT Peak Nogxavdq643.1cm/sLVOT VTI37.97cmAO Mean GR.36mmHg LEE (VMAX)1.85hq8HHA (VTI)1.31ci0AF P 1/2 Rtxj517ue Mitral Valve MV E Uygdplfs673.3cm/sE/A ratio0.0 TDI E/Lateral E'0.0E/Medial E'0.0 Tricuspid Valve TR Peak Itpoeqad377ba/sTR Peak Gr.18zlBlRXPS33avMn LEFT VENTRICLE The left ventricle is normal size. There is moderate concentric left ventricular hypertrophy. The left ventricular function is normal. The left ventricular ejection fraction is within the normal range. No regional wall motion abnormalities noted. The left ventricular diastolic function is indetermiante. No left ventricle thrombus noted on this study. There is no ventricular septal defect visualized. There is no left ventricular aneurysm. There is no mass noted in the left ventricle. RIGHT VENTRICLE The right ventricle is normal size. There is normal right ventricular wall thickness. The right ventricular systolic function is normal. ATRIA The left atrium size is normal. The right atrium size is moderately to markedly increased. The interatrial septum is intact with no evidence for an atrial septal defect. AORTIC VALVE The aortic valve leaflets are thickened. No aortic regurgitation is present. There is mild aortic valvular stenosis. Valve area is about 1.6 cm2. There is moderate aortic valvular vegetation. MITRAL VALVE The mitral valve is normal in structure and function. There is no evidence of mitral valve prolapse. There is no mitral valve stenosis. There is mioderate mitral valve regurgitation noted. TRICUSPID VALVE The tricuspid valve is normal in structure and function. There is mild tricuspid valve regurgitation noted. estiamted PA systolic pressure is 42 mm Hg. There is no tricuspid valve prolapse or vegetation. There is no tricuspid valve stenosis. PULMONIC VALVE The pulmonary valve is normal in structure and function. There is no pulmonic valvular regurgitation. There is no pulmonic valvular stenosis. GREAT VESSELS The aortic root is normal in size. The ascending aorta is normal in size. The pulmonary artery is normal. The IVC is normal in size and collapses >50% with inspiration. PERICARDIAL EFFUSION The pericardium appears normal. There is no pleural effusion. <Conclusion> Normal LV systolic function. Moderately increased LV wall thickness. Moderate mitral regurgitation. Moderate aortic regurgitation. Mild aortic stenosis. Moderate to markedly increased LA size.
[2017-08-21] MEDS: Albuterol-Ipratrop 3 mg / 0.5 (3 ml) UD IH SCH ×4 (01:51→19:16)
[2017-08-21 07:01] LABS: BASO % 0.1 % (0.0-2.0); HEMOGLOBIN 13.9 g/dL (12.0-18.0); LYMPH # 0.6 K/uL (1.0-4.3); LYMPH % 2.6 % (20.0-40.0); MEAN CELL VOLUME 83.1 fL (80.0-94.0); MEAN CORPUSCULAR HEMOGLOBIN 28.2 pg (27.0-31.0); MEAN CORPUSCULAR HGB CONC 33.9 g/dL (33.0-37.0); MEAN PLATELET VOLUME 7.5 fL (7.2-11.7); MONO # 0.9 K/uL (0.0-0.8); MONO % 3.8 % (0.0-10.0); NEUT % 93.5 % (50.0-75.0); PLATELET COUNT 294 K/uL (130-400); RBC 4.92 Mil/uL (4.40-5.90); RED CELL DISTRIBUTION WIDTH 16.1 % (11.5-14.5); WHITE BLOOD COUNT 22.5 K/uL (4.8-10.8)
[2017-08-21 07:40] LABS: BLOOD UREA NITROGEN 34 mg/dL (9-20); CALCIUM 9.1 mg/dl (8.6-10.4); GFR AFRICAN-AMERICAN > 60; GFR NON-AFRICAN AMERICAN > 60
[2017-08-21] MEDS: diltiaZEM 240 mg/24 Hours CD Cap PO SCH ×2 (08:31→12:25)
[2017-08-21 09:09] LABS: LYMPHOCYTE 2 % (20-40); MONOCYTE 2 % (0-10); NEUTROPHIL 96 % (50-75); PLATELET ESTIMATE NORMAL (NORMAL); TOTAL CELLS COUNTED 100
[2017-08-21] MEDS: MethylPREDNISolone 40 mg Vial IVP SCH ×2 (09:11→22:21)
[2017-08-21] MEDS: Enoxaparin 40 mg Syringe SC SCH (09:17)
--- NOTE | 2017-08-21 12:23 | CARD ---
APPROVED REPORT EKG Measurement Heart [id number] <Conclusion> Atrial fibrillation with slow ventricular response Cannot rule out Inferior infarct, age undetermined ST & T wave abnormality, consider lateral ischemia Abnormal ECG
--- NOTE | 2017-08-21 12:54 | CP.PCM.PN ---
Subjective - Date & Time of Evaluation Date of Evaluation: 08/21/17 Time of Evaluation: 12:51 - Subjective Subjective: Feeling better, No new complaints except lack of sleep. Walking in the hallway. Objective - Vital Signs/Intake and Output Vital Signs (last 24 hours): Temp Pulse Resp BP Pulse Ox 97.6 F 90 18 136/68 94 L 08/21/17 08:34 08/21/17 08:34 08/21/17 08:34 08/21/17 09:12 08/21/17 08:34 Intake and Output: 08/21/17 08/21/17 06:59 18:59 Intake Total 200 Balance 200 - Medications Medications: Current Medications Albuterol/Ipratropium (Duoneb 3 Mg/0.5 Mg (3 Ml) Ud) 3 ml IH RQ6 [facility] Last Admin: 08/21/17 07:23 Dose: 3 ml Aspirin (Aspirin Chewable) 81 mg PO DAILY [facility] Last Admin: 08/21/17 09:10 Dose: 81 mg Clonazepam (Klonopin) 1 mg PO [facility] PRN Reason: Protocol Last Admin: 08/20/17 21:32 Dose: 1 mg Clopidogrel Bisulfate (Plavix) 75 mg PO DAILY [facility] Last Admin: 08/21/17 09:10 Dose: 75 mg Diltiazem HCl (Cardizem Cd) 240 mg PO DAILY [facility] Last Admin: 08/21/17 12:25 Dose: Not Given Diphenhydramine HCl (Benadryl) 25 mg PO HS [facility] Last Admin: 08/20/17 21:32 Dose: 25 mg Enoxaparin Sodium (Lovenox) 40 mg SC DAILY [facility] Last Admin: 08/21/17 09:17 Dose: 40 mg Famotidine (Pepcid) 40 mg PO DAILY [facility] Last Admin: 08/21/17 09:10 Dose: 40 mg Furosemide (Lasix) 40 mg IVP Q12 [facility] Last Admin: 08/21/17 09:12 Dose: 40 mg Isosorbide Mononitrate (Imdur Er) 30 mg PO DAILY [facility] Last Admin: 08/21/17 09:10 Dose: 30 mg Lamotrigine (Lamictal) 100 mg PO BID [facility] Last Admin: 08/21/17 09:14 Dose: 100 mg Methylprednisolone (Solu-Medrol) 40 mg IVP Q12 [facility] Last Admin: 08/21/17 09:11 Dose: 40 mg Metoprolol Tartrate (Lopressor) 100 mg PO BID [facility] Last Admin: 08/21/17 12:25 Dose: Not Given Rosuvastatin Calcium (Crestor) 40 mg PO HS [facility] Last Admin: 08/20/17 21:33 Dose: 40 mg - Labs Labs: 08/21/17 06:24 08/21/17 06:24 - Head Exam Head Exam: NORMOCEPHALIC - Neck Exam Neck Exam: Normal Inspection - Respiratory Exam Respiratory Exam: NORMAL BREATHING PATTERN - Cardiovascular Exam Cardiovascular Exam: Irregular Rhythm - Extremities Exam Extremities Exam: Normal Inspection - Neurological Exam Neurological Exam: Alert, Oriented x3 Assessment and Plan (1) Atrial fibrillation Assessment & Plan: Rate fluctuating. Increase dose of Cardizem with therapeutic anticoagulation. Status: Acute (2) CAD (coronary artery disease) Status: Acute (3) Chest pain Status: Acute (4) Congestive heart failure Assessment & Plan: Improved. Continue diuretics. Discussed with patient about further workup. Discussed with team. Status: Acute
[2017-08-21] MEDS ORDERED: diltiaZEM 240 mg/24 Hours CD Cap PO SCH (13:03)
--- NOTE | 2017-08-22 00:34 | PN ---
DATE: 08/21/2017 SUBJECTIVE: The patient was seen and examined at the bedside, looking comfortable. No nausea, vomiting, or diarrhea. No hematuria or hematochezia. Sometimes feeling palpitation. No headache or dizziness. No chest pain. No fever, no chills. PHYSICAL EXAMINATION: VITAL SIGNS: Temperature 97.6, pulse 90, respiratory rate 18, blood pressure 136/68, pulse oximetry 94. HEENT: Head is normocephalic, atraumatic. Eyes, PERRLA. Extraocular muscles intact. Conjunctivae clear. Nose patent. Mucous membranes moist. NECK: Supple. No carotid bruits. No JVD or thyromegaly. CHEST: Bilaterally symmetrical. HEART: S1 and S2 positive. LUNGS: Clear to auscultation. ABDOMEN: Soft. Bowel sounds present. No organomegaly. EXTREMITIES: No edema, no cyanosis. NEUROLOGICAL: The patient is awake and alert, moving all 4 extremities. No focal deficit. MEDICATIONS: DuoNeb, aspirin, Klonopin, Plavix, Cardizem, Benadryl, Lovenox, Lasix, Imdur, Lamictal, Solu-Medrol, Lopressor, Crestor. LABORATORY DATA: White blood cells 22.5, hemoglobin 13.9, hematocrit 40.8, platelets 294. Sodium 135, potassium 4.3, BUN 34, creatinine 1.1, and glucose 114. ASSESSMENT AND PLAN: Mr. Pavan Adams is a 61-year-old male with leukocytosis, hypochloremia, hyperglycemia, had atrial fibrillation, rate fluctuating. Increased dose of Cardizem with therapeutic anticoagulation. Coronary artery disease, chest pain, congestive heart failure. Reviewed Dr. Arriola's notes. Discussion done with the patient. Seen by Dr. Nav Carolina, nut sorter. History of dyspnea, improved. Coronary artery disease, systolic murmur. Bipolar disorder, on Lamictal. Plan is to continue present treatment. Appreciate Cardiology and Pulmonary input. Continue aspirin, Benadryl, Cardizem. Tapering the dose of steroids and Plavix. We will follow up. Cecy Carvalho MD [facility] # [id number]
[2017-08-22] MEDS: Albuterol-Ipratrop 3 mg / 0.5 (3 ml) UD IH SCH ×4 (01:13→19:19)
--- NOTE | 2017-08-22 04:30 | PN ---
DATE: 08/20/2017 SUBJECTIVE: The patient is seen and examined at the bedside on 08/20/2017. The patient is lying down comfortably. Wheezing is better. No shortness of breath. No nausea, vomiting or diarrhea. The patient has tangential speech, but can be redirected. No other significant complaints. No fever, no chills. PHYSICAL EXAMINATION: VITAL SIGNS: Temperature 97.4, pulse 98, respiratory rate 18, blood pressure 142/83, pulse oximetry 97. HEENT: Head is normocephalic, atraumatic. Eyes, PERRLA. Extraocular muscles intact. Conjunctivae clear. Nose patent. NECK: Supple. No carotid bruits. No JVD or thyromegaly. CHEST: Bilaterally symmetrical. HEART: S1 and S2 positive. LUNGS: Clear to auscultation. ABDOMEN: Soft. Bowel sounds present. No organomegaly. EXTREMITIES: No edema, no cyanosis. NEUROLOGICAL: The patient is awake and alert. Moving all 4 extremities. No focal deficits. MEDICATIONS: Albuterol, aspirin, Klonopin, Plavix, Cardizem, Benadryl, Lovenox, Pepcid, Lasix, Imdur, Lamictal, Solu-Medrol, Lopressor, Crestor. LABORATORY DATA: White blood cells 27.2, hemoglobin 14.2, hematocrit noted , platelets 350. Sodium 139, potassium 4.6, BUN 20, creatinine 1.9 and glucose 105. ASSESSMENT AND PLAN: Mr. Pavan Adams a 61-year- old male with leukocytosis, hypochloremia, increased BUN, and leukocytes have been increased secondary to Solu-Medrol dosing. Now we are tapering down Solu-Medrol. Dyspnea, small to moderate right pleural effusion with elevated right hemidiaphragm. Continue Lasix, DuoNeb, Solu-Medrol. Atrial fibrillation, need better rate control, may need to increase the beta mack to consider cardioverting the patient. Coronary artery disease, systolic murmur, bipolar, schizophrenia. Appreciated Dr. Arriola's and the segmental wall installer's input. Continue current treatment, repeat labs. Cecy Carvalho MD [facility] # [id number] [facility]
[2017-08-22 06:16] LABS: HEMOGLOBIN 14.4 g/dL (12.0-18.0); MEAN CELL VOLUME 83.4 fL (80.0-94.0); MEAN CORPUSCULAR HGB CONC 33.6 g/dL (33.0-37.0); MEAN PLATELET VOLUME 7.6 fL (7.2-11.7); RBC 5.14 Mil/uL (4.40-5.90); RED CELL DISTRIBUTION WIDTH 16.3 % (11.5-14.5)
[2017-08-22 06:26] LABS: BLOOD UREA NITROGEN 41 mg/dL (9-20); CALCIUM 9.5 mg/dl (8.6-10.4); GFR AFRICAN-AMERICAN > 60; GFR NON-AFRICAN AMERICAN 52
--- NOTE | 2017-08-22 09:31 | CP.PCM.PN ---
Subjective - Date & Time of Evaluation Date of Evaluation: 08/22/17 Time of Evaluation: 09:31 - Subjective Subjective: Pulmonary Follow up, Covering Dr. Carolina The patient was Seen and examined by me at the bedside, Events reviewed Patient feeling much better, comfortable, NAD Breathing unlabored, on room air O2 sat 95-100%. Denies any chest pain, SOB or Palpitations No wheezing Afebrile Objective - Vital Signs/Intake and Output Vital Signs (last 24 hours): Temp Pulse Resp BP Pulse Ox 97.9 F 101 H 18 132/76 97 08/22/17 08:08 08/22/17 08:08 08/22/17 08:08 08/22/17 08:08 08/22/17 08:08 Intake and Output: 08/22/17 08/22/17 06:59 18:59 Intake Total 480 Balance 480 - Medications Medications: Current Medications Albuterol/Ipratropium (Duoneb 3 Mg/0.5 Mg (3 Ml) Ud) 3 ml IH RQ6 [facility] Last Admin: 08/22/17 07:47 Dose: 3 ml Aspirin (Aspirin Chewable) 81 mg PO DAILY [facility] Last Admin: 08/21/17 09:10 Dose: 81 mg Clonazepam (Klonopin) 1 mg PO HS [facility] PRN Reason: Protocol Last Admin: 08/21/17 22:18 Dose: 1 mg Clopidogrel Bisulfate (Plavix) 75 mg PO DAILY [facility] Last Admin: 08/21/17 09:10 Dose: 75 mg Diltiazem HCl (Cardizem Cd) 300 mg PO DAILY [facility] Diphenhydramine HCl (Benadryl) 25 mg PO HS [facility] Last Admin: 08/21/17 22:17 Dose: 25 mg Enoxaparin Sodium (Lovenox) 40 mg SC DAILY [facility] Last Admin: 08/21/17 09:17 Dose: 40 mg Famotidine (Pepcid) 40 mg PO DAILY [facility] Last Admin: 08/21/17 09:10 Dose: 40 mg Furosemide (Lasix) 40 mg IVP Q12 [facility] Last Admin: 08/21/17 22:17 Dose: 40 mg Isosorbide Mononitrate (Imdur Er) 30 mg PO DAILY [facility] Last Admin: 08/21/17 09:10 Dose: 30 mg Lamotrigine (Lamictal) 100 mg PO BID [facility] Last Admin: 08/21/17 18:00 Dose: 100 mg Methylprednisolone (Solu-Medrol) 20 mg IVP Q12 [facility] Last Admin: 08/21/17 22:21 Dose: 20 mg Metoprolol Tartrate (Lopressor) 100 mg PO BID [facility] Last Admin: 08/21/17 17:59 Dose: 100 mg Rosuvastatin Calcium (Crestor) 40 mg PO HS [facility] Last Admin: 08/21/17 22:17 Dose: 40 mg - Labs Labs: 08/22/17 06:08 08/22/17 06:08 - Constitutional Appears: Well, Non-toxic - Head Exam Head Exam: ATRAUMATIC, NORMAL INSPECTION - Eye Exam Eye Exam: EOMI. absent: Conjunctival injection Pupil Exam: PERRL - ENT Exam ENT Exam: Mucous Membranes Dry - Neck Exam Neck Exam: Full ROM - Respiratory Exam Respiratory Exam: Clear to Ausculation Bilateral, Prolonged Expiratory Phase, NORMAL BREATHING PATTERN. absent: Accessory Muscle Use, Chest Wall Tenderness, Decreased Breath Sounds, Rales, Rhonchi, Wheezes, Respiratory Distress - Cardiovascular Exam Cardiovascular Exam: REGULAR RHYTHM, RRR, +S1, +S2. absent: Bradycardia, Tachycardia, JVD - GI/Abdominal Exam GI & Abdominal Exam: Soft, Normal Bowel Sounds. absent: Distended, Firm, Guarding, Rigid - Extremities Exam Extremities Exam: Full ROM, Normal Capillary Refill, Normal Inspection. absent : Calf Tenderness, Joint Swelling, Pedal Edema - Back Exam Back Exam: absent: CVA tenderness (L), CVA tenderness (R) - Neurological Exam Neurological Exam: Alert, Awake Assessment and Plan (1) Pleural effusion due to CHF (congestive heart failure) Assessment & Plan: CXR- Small to moderate right pleural effusion with elevated right hemidiaphragm Continue Lasix 40 mg Q12., switch to PO. Continue Duonebs, Solumedrol Status: Acute (2) COPD (chronic obstructive pulmonary disease) Assessment & Plan: admits to smoking 1 pack of cigarettes a day since the age of 19 Continue current management Smoking cassation discussed with the patient Status: Acute (3) Atrial fibrillation Status: Acute (4) Congestive heart failure Status: Acute (5) Bipolar 1 disorder Status: Acute
[2017-08-22] MEDS ORDERED: diltiaZEM 240 mg/24 Hours CD Cap PO SCH (10:00)
[2017-08-22] MEDS: Enoxaparin 40 mg Syringe SC SCH (10:29)
[2017-08-22] MEDS: diltiaZEM 300 mg/24 Hours CD Cap PO SCH (10:29)
[2017-08-22] MEDS: MethylPREDNISolone 40 mg Vial IVP SCH ×2 (10:30→22:11)
[2017-08-22 15:52] VITALS: RESP 20
[2017-08-22] MEDS: Digoxin 125 mcg (0.125 mg) Tab PO SCH (17:28)
--- NOTE | 2017-08-23 02:33 | PN ---
DATE: 08/22/2017 SUBJECTIVE: The patient seen and examined at bedside, looking comfortable, still complaining of abdominal pain. No nausea, vomiting or diarrhea. No hematuria or hematochezia. No headaches, no dizziness. No chest pain, no palpitations. No shortness of breath. PHYSICAL EXAMINATION: VITAL SIGNS: Temperature 97.9, pulse 101, respirations 18, blood pressure 130/76 and pulse oximetry 97. HEENT: Head normocephalic and atraumatic. Eyes, PERRLA. Extraocular muscles intact. Conjunctivae clear. Nose patent. Mucous membranes moist. NECK: Supple. No carotid bruits. No JVD or thyromegaly. CHEST: Bilaterally symmetrical. HEART: S1 and S2 positive. LUNGS: Clear to auscultation. ABDOMEN: Soft. Bowel sounds present. No organomegaly. EXTREMITIES: No edema, no cyanosis. NEUROLOGIC: The patient is awake and alert. Moving all 4 extremities. No focal deficits. MEDICATIONS: Ipratropium, aspirin, Klonopin, Plavix, Cardizem, Benadryl, Lovenox, Lopressor, Lasix, Imdur, Lamictal, Solu-Medrol, Crestor. LABORATORY DATA: White blood cell 19, hemoglobin 14.4, hematocrit 42.9 and platelets 288. Sodium 137, potassium 4.4, BUN 41, creatinine 1.4 and glucose 111. ASSESSMENT AND PLAN: Mr. Pavan Adams a 61 years old male with leucocytosis, renal insufficiency, hyperglycemia, hypochloremia, has pleural effusion due to congestive heart failure. X-rays shows moderate right plural effusion with elevated right hemidiaphragm. Continue Lasix switch to p.o. Continue DuoNeb, Solu-Medrol, tapering doses. Chronic obstructive pulmonary disease. Admits to smoking 1 pack of cigarette a day since the age of 19. Continue current medications, smoking cessation discussion done. Atrial fibrillation, congestive heart failure, bipolar. Physical therapy, emt i/99 on the case. GI and DVT prophylaxis. Repeat labs. We will follow. Cecy Carvalho MD
[2017-08-23] MEDS: Albuterol-Ipratrop 3 mg / 0.5 (3 ml) UD IH SCH ×3 (02:38→13:41)
[2017-08-23 06:28] LABS: BASO % 0.1 % (0.0-2.0); EOS % 0.1 % (0.0-4.0); HEMOGLOBIN 14.9 g/dL (12.0-18.0); LYMPH # 0.8 K/uL (1.0-4.3); LYMPH % 4.5 % (20.0-40.0); MEAN CELL VOLUME 83.3 fL (80.0-94.0); MEAN CORPUSCULAR HEMOGLOBIN 27.8 pg (27.0-31.0); MEAN CORPUSCULAR HGB CONC 33.3 g/dL (33.0-37.0); MEAN PLATELET VOLUME 7.6 fL (7.2-11.7); MONO # 1.3 K/uL (0.0-0.8); MONO % 6.9 % (0.0-10.0); NEUT # 16.7 K/uL (1.8-7.0); NEUT % 88.4 % (50.0-75.0); NRBC % 0.3 % (0.0-2.0); PLATELET COUNT 302 K/uL (130-400); RBC 5.35 Mil/uL (4.40-5.90); RED CELL DISTRIBUTION WIDTH 15.9 % (11.5-14.5); WHITE BLOOD COUNT 18.8 K/uL (4.8-10.8)
[2017-08-23 06:44] LABS: ALB/GLOB RATIO 1.4 (1.0-2.1); ALBUMIN 4.2 g/dL (3.5-5.0); ALT/SGPT 100 U/L (21-72); AST/SGOT 48 U/L (17-59); BLOOD UREA NITROGEN 45 mg/dL (9-20); CALCIUM 9.3 mg/dl (8.6-10.4); GFR AFRICAN-AMERICAN > 60; GFR NON-AFRICAN AMERICAN 57
[2017-08-23 09:19] LABS: ANISOCYTOSIS SLIGHT; LYMPHOCYTE 4 % (20-40); MONOCYTE 7 % (0-10); NEUTROPHIL 89 % (50-75); NUCLEATED RED BLOOD CELL 1 % (0-0); PLATELET ESTIMATE NORMAL (NORMAL); TOTAL CELLS COUNTED 100
[2017-08-23 09:20] LABS: HYPOCHROMIC SLIGHT
[2017-08-23 09:22] LABS: POLYCHROMIC SLIGHT
[2017-08-23 09:26] LABS: LARGE PLATELETS PRESENT
[2017-08-23] MEDS: MethylPREDNISolone 40 mg Vial IVP SCH (10:32)
[2017-08-23] MEDS: diltiaZEM 300 mg/24 Hours CD Cap PO SCH (10:32)
--- NOTE | 2017-08-23 12:50 | CP.PCM.PN ---
Subjective - Date & Time of Evaluation Date of Evaluation: 08/23/17 Time of Evaluation: 12:48 - Subjective Subjective: Pulmonary Follow up, Covering Dr. Carolina The patient was Seen and examined by me at the bedside, Events reviewed Patient feeling much better, comfortable, NAD Breathing unlabored, in no apparent acute distress. Sat on room air 95-100%. Denies any chest pain, SOB or Palpitations No wheezing Afebrile Objective - Vital Signs/Intake and Output Vital Signs (last 24 hours): Temp Pulse Resp BP Pulse Ox 97.5 F L 160 H 20 121/86 98 08/23/17 08:49 08/23/17 10:55 08/23/17 08:49 08/23/17 10:55 08/23/17 08:49 Intake and Output: 08/23/17 08/23/17 06:59 18:59 Intake Total 0 Balance 0 - Medications Medications: Current Medications Albuterol/Ipratropium (Duoneb 3 Mg/0.5 Mg (3 Ml) Ud) 3 ml IH RQ6 [facility] Last Admin: 08/23/17 08:15 Dose: 3 ml Apixaban (Eliquis) 5 mg PO BID [facility] Last Admin: 08/23/17 10:31 Dose: 5 mg Aspirin (Aspirin Chewable) 81 mg PO DAILY [facility] Last Admin: 08/23/17 10:31 Dose: 81 mg Clonazepam (Klonopin) 1 mg PO HS [facility] PRN Reason: Protocol Last Admin: 08/22/17 22:10 Dose: 1 mg Clopidogrel Bisulfate (Plavix) 75 mg PO DAILY [facility] Last Admin: 08/23/17 10:30 Dose: 75 mg Digoxin (Digoxin) 0.125 mg PO DAILY@1800 [facility] Last Admin: 08/22/17 17:28 Dose: 0.125 mg Diltiazem HCl (Cardizem Cd) 300 mg PO DAILY [facility] Last Admin: 08/23/17 10:32 Dose: 300 mg Diphenhydramine HCl (Benadryl) 25 mg PO HS [facility] Last Admin: 08/22/17 22:09 Dose: 25 mg Famotidine (Pepcid) 40 mg PO DAILY [facility] Last Admin: 08/23/17 10:31 Dose: 40 mg Furosemide (Lasix) 40 mg IVP Q12 [facility] Last Admin: 08/23/17 10:28 Dose: 40 mg Isosorbide Mononitrate (Imdur Er) 30 mg PO DAILY [facility] Last Admin: 08/23/17 10:31 Dose: 30 mg Lamotrigine (Lamictal) 100 mg PO BID [facility] Last Admin: 08/23/17 10:31 Dose: 100 mg Methylprednisolone (Solu-Medrol) 20 mg IVP Q12 [facility] Last Admin: 08/23/17 10:32 Dose: 20 mg Metoprolol Tartrate (Lopressor) 100 mg PO BID [facility] Last Admin: 08/23/17 10:31 Dose: 100 mg Rosuvastatin Calcium (Crestor) 40 mg PO HS [facility] Last Admin: 08/22/17 22:10 Dose: 40 mg - Labs Labs: 08/23/17 06:23 08/23/17 06:23 Assessment and Plan (1) Pleural effusion due to CHF (congestive heart failure) Status: Acute (2) COPD (chronic obstructive pulmonary disease) Status: Acute (3) Atrial fibrillation Status: Acute (4) Congestive heart failure Status: Acute (5) Bipolar 1 disorder Status: Acute
--- NOTE | 2017-08-23 14:14 | CP.PCM.PN ---
Subjective - Date & Time of Evaluation Date of Evaluation: 08/23/17 Time of Evaluation: 14:11 - Subjective Subjective: No new complaints. Walking in the room. Objective - Vital Signs/Intake and Output Vital Signs (last 24 hours): Temp Pulse Resp BP Pulse Ox 97.5 F L 108 H 20 121/86 98 08/23/17 08:49 08/23/17 12:00 08/23/17 08:49 08/23/17 10:55 08/23/17 08:49 Intake and Output: 08/23/17 08/23/17 06:59 18:59 Intake Total 0 Balance 0 - Medications Medications: Current Medications Albuterol/Ipratropium (Duoneb 3 Mg/0.5 Mg (3 Ml) Ud) 3 ml IH RQ6 [facility] Last Admin: 08/23/17 13:41 Dose: 3 ml Apixaban (Eliquis) 5 mg PO BID [facility] Last Admin: 08/23/17 10:31 Dose: 5 mg Aspirin (Aspirin Chewable) 81 mg PO DAILY [facility] Last Admin: 08/23/17 10:31 Dose: 81 mg Clonazepam (Klonopin) 1 mg PO [facility] PRN Reason: Protocol Last Admin: 08/22/17 22:10 Dose: 1 mg Clopidogrel Bisulfate (Plavix) 75 mg PO DAILY [facility] Last Admin: 08/23/17 10:30 Dose: 75 mg Digoxin (Digoxin) 0.125 mg PO DAILY@1800 [facility] Last Admin: 08/22/17 17:28 Dose: 0.125 mg Diltiazem HCl (Cardizem Cd) 300 mg PO DAILY [facility] Last Admin: 08/23/17 10:32 Dose: 300 mg Diphenhydramine HCl (Benadryl) 25 mg PO HS [facility] Last Admin: 08/22/17 22:09 Dose: 25 mg Famotidine (Pepcid) 40 mg PO DAILY [facility] Last Admin: 08/23/17 10:31 Dose: 40 mg Furosemide (Lasix) 40 mg IVP Q12 [facility] Last Admin: 08/23/17 10:28 Dose: 40 mg Isosorbide Mononitrate (Imdur Er) 30 mg PO DAILY [facility] Last Admin: 08/23/17 10:31 Dose: 30 mg Lamotrigine (Lamictal) 100 mg PO BID [facility] Last Admin: 08/23/17 10:31 Dose: 100 mg Methylprednisolone (Solu-Medrol) 20 mg IVP Q12 [facility] Last Admin: 08/23/17 10:32 Dose: 20 mg Metoprolol Tartrate (Lopressor) 100 mg PO BID [facility] Last Admin: 08/23/17 10:31 Dose: 100 mg Rosuvastatin Calcium (Crestor) 40 mg PO HS [facility] Last Admin: 08/22/17 22:10 Dose: 40 mg - Labs Labs: 08/23/17 06:23 08/23/17 06:23 - Head Exam Head Exam: NORMOCEPHALIC - Neck Exam Neck Exam: Normal Inspection - Respiratory Exam Respiratory Exam: NORMAL BREATHING PATTERN - Cardiovascular Exam Cardiovascular Exam: Irregular Rhythm - Extremities Exam Extremities Exam: Normal Inspection - Neurological Exam Neurological Exam: Alert, Oriented x3 Assessment and Plan (1) Atrial fibrillation Assessment & Plan: Rate control and anticoagulation. Status: Acute (2) CAD (coronary artery disease) Status: Acute (3) Chest pain Status: Acute (4) Congestive heart failure Assessment & Plan: CHF stable. May D/C home. Follow-up with primary airplane pilot chief. Status: Acute
--- NOTE | 2017-08-23 14:15 | CP.PCM.PN ---
Subjective - Date & Time of Evaluation Date of Evaluation: 08/23/17 Time of Evaluation: 14:15 Objective - Vital Signs/Intake and Output Vital Signs (last 24 hours): Temp Pulse Resp BP Pulse Ox 97.5 F L 108 H 20 121/86 98 08/23/17 08:49 08/23/17 12:00 08/23/17 08:49 08/23/17 10:55 08/23/17 08:49 Intake and Output: 08/23/17 08/23/17 06:59 18:59 Intake Total 0 Balance 0 - Medications Medications: Current Medications Albuterol/Ipratropium (Duoneb 3 Mg/0.5 Mg (3 Ml) Ud) 3 ml IH RQ6 [facility] Last Admin: 08/23/17 13:41 Dose: 3 ml Apixaban (Eliquis) 5 mg PO BID [facility] Last Admin: 08/23/17 10:31 Dose: 5 mg Aspirin (Aspirin Chewable) 81 mg PO DAILY [facility] Last Admin: 08/23/17 10:31 Dose: 81 mg Clonazepam (Klonopin) 1 mg PO [facility] PRN Reason: Protocol Last Admin: 08/22/17 22:10 Dose: 1 mg Clopidogrel Bisulfate (Plavix) 75 mg PO DAILY [facility] Last Admin: 08/23/17 10:30 Dose: 75 mg Digoxin (Digoxin) 0.125 mg PO DAILY@1800 [facility] Last Admin: 08/22/17 17:28 Dose: 0.125 mg Diltiazem HCl (Cardizem Cd) 300 mg PO DAILY [facility] Last Admin: 08/23/17 10:32 Dose: 300 mg Diphenhydramine HCl (Benadryl) 25 mg PO HS [facility] Last Admin: 08/22/17 22:09 Dose: 25 mg Famotidine (Pepcid) 40 mg PO DAILY [facility] Last Admin: 08/23/17 10:31 Dose: 40 mg Furosemide (Lasix) 40 mg IVP Q12 [facility] Last Admin: 08/23/17 10:28 Dose: 40 mg Isosorbide Mononitrate (Imdur Er) 30 mg PO DAILY [facility] Last Admin: 08/23/17 10:31 Dose: 30 mg Lamotrigine (Lamictal) 100 mg PO BID [facility] Last Admin: 08/23/17 10:31 Dose: 100 mg Methylprednisolone (Solu-Medrol) 20 mg IVP Q12 [facility] Last Admin: 08/23/17 10:32 Dose: 20 mg Metoprolol Tartrate (Lopressor) 100 mg PO BID [facility] Last Admin: 08/23/17 10:31 Dose: 100 mg Rosuvastatin Calcium (Crestor) 40 mg PO HS [facility] Last Admin: 08/22/17 22:10 Dose: 40 mg - Labs Labs: 08/23/17 06:23 08/23/17 06:23 Assessment and Plan - Assessment and Plan (Free Text) Assessment: FOLLOW UP WITH DR KWOK AT HER OFFICE ---CALL FOR APPOINTMENT FOLLOW UP WITH YOUR CERAMIC PAINTER AT THEIR OFFICE NEXT WEEK --CALL FOR APPOINTMENT CONTUNUE ALL YOUR HOME MEDICATION NEW PRESCRIPTION GIVEN CARDIZEM 300 MG PO BID STOP TAKING CARDIZEM 120 MG ACTIVITY TOLERATED CALL DR KWOK OR GO TO THE EMERGENCY ROOM IF SYMPTOMS RETURN OR WORSENING
[2017-08-23 16:43] VITALS: BP 133/87; PULSE 97; TEMP 97.9; O2SAT 97
[2017-08-23] MEDS: Digoxin 125 mcg (0.125 mg) Tab PO SCH (17:26)
[2017-08-23 17:27] VITALS: PULSE 97
--- NOTE | 2017-08-26 12:17 | CARD ---
APPROVED REPORT EKG Measurement Heart [id number] <Conclusion> Atrial fibrillation Voltage criteria for left ventricular hypertrophy Possible Inferior infarct, age undetermined ST & T wave abnormality, consider lateral ischemia Abnormal ECG
== END 2017-08-23 19:13 | disposition home or self-care (01) | DRG 293 ==
LOC: C.ER 11:34 → INTOOBSV 14:53 → C.9E 14:53 → C.6T 16:27 → OBSVTOIN 08-21 19:08
PROVIDERS: ADMIT Internal Medicine; ATTEND Internal Medicine
DX: I11.0 Hypertensive heart disease with heart failure (principal); E78.5 Hyperlipidemia, unspecified; E87.5 Hyperkalemia; F17.210 Nicotine dependence, cigarettes, uncomplicated; D72.829 Elevated white blood cell count, unspecified; I25.10 Atherosclerotic heart disease of native coronary artery without angina pectoris; I48.91 Unspecified atrial fibrillation; I50.9 Heart failure, unspecified; J44.9 Chronic obstructive pulmonary disease, unspecified; N28.9 Disorder of kidney and ureter, unspecified; Z95.2 Presence of prosthetic heart valve; Z95.5 Presence of coronary angioplasty implant and graft; F31.9 Bipolar disorder, unspecified

== ENCOUNTER 2017-10-09 19:41 | Inpatient (IN) | payer MEDICARE, MEDICAID ==
--- NOTE | 2017-10-09 19:46 | C.PDOC ---
History Of Present Illness 61 year old male with PMHx of HTN, hyperlipidemia, CHF, CAD. atrial fibrillation ,s/p Stents, bipolar disorder is brought to the ED by EMS for evaluation. Patient c/o prolonged palpitations episodes onset today 18:00 associated with chest pain. Patient has a history of AFib past several weeks, usually getting morning AFiB episodes that would normally resolve spontaneously. Per EMS patient was on rapid AFib at 150s with normal BP, patient was given cardizen 20 which patient tolerated well. On arrival patient was still on rapid AFib in the 80s. Patient states he has residual chest pain but has improved from initial. Patient states current episode unusual due to being more prolonged and this time happened in the afternoon. Patient is s/p cardiac ablation 2 weeks ago at [facility]. Initially procedure worked but patient reports symptoms returned 5 days later, patient did not tell his wafer production worker this information. Patient was supposed to see his wafer production worker today but did not go because "it was too hot". Patient states he was having morning palpitations prior to the cardio ablation. Patient denies SOB, leg swelling, dizziness, headache, visual changes, fever. Patient states he is compliant with medications. Patient's wafer production worker is Dr. Pearl. PMHx OF HTN, Hyperlipidemia, CHF, CAD S/P Stents, Atrial Fibrillation and Bipolar Disorder Time Seen by Provider: 10/09/17 19:46 History Per: Patient, EMS History/Exam Limitations: no limitations Onset/Duration Of Symptoms: Hrs (18:00) Current Symptoms Are (Timing): Still Present Associated Symptoms: Chest Pain Quality Of Symptoms: Rapid Heart Rate Recent travel outside of the [place]: No Additional History Per: Patient, EMS Past Medical History Reviewed: Historical Data, Nursing Documentation, Vital Signs Vital Signs: Last Vital Signs Temp 98.4 F 10/09/17 19:46 Pulse 94 H 10/09/17 19:46 Resp 20 10/09/17 19:46 BP 138/78 10/09/17 19:46 Pulse Ox 98 10/09/17 19:46 - Medical History PMH: Atrial Fibrillation, Bipolar Disorder, Depression, HTN, Hyperlipidemia Denies: Chronic Kidney Disease Surgical History: Tonsillectomy Family History: States: Unknown Family Hx - Social History Hx Alcohol Use: Yes (drink rum with dinner very small amount) Hx Substance Use: No - Immunization History Hx Tetanus Toxoid Vaccination: No Hx Influenza Vaccination: No Hx Pneumococcal Vaccination: No Review Of Systems Constitutional: Negative for: Fever, Chills Cardiovascular: Positive for: Chest Pain, Palpitations Respiratory: Negative for: Cough, Shortness of Breath Gastrointestinal: Negative for: Nausea, Vomiting Skin: Negative for: Rash Neurological: Negative for: Weakness, Numbness, Headache, Dizziness Physical Exam - Physical Exam Appears: Non-toxic, No Acute Distress Skin: Normal Color, Warm, Dry Head: Atraumatic, Normacephalic Eye(s): bilateral: Normal Inspection Oral Mucosa: Moist Neck: Normal ROM, Supple Chest: Symmetrical Cardiovascular: Rhythm Regular Respiratory: Normal Breath Sounds, No Rales, No Rhonchi, No Wheezing Gastrointestinal/Abdominal: Soft, No Tenderness, No Guarding, No Rebound Extremity: Normal ROM, No Tenderness, No Swelling Neurological/Psych: Oriented x3, Normal Speech Gait: Steady ED Course And Treatment - Laboratory Results Result Diagrams: 10/09/17 19:58 10/09/17 19:58 ECG: Interpreted By Me ECG Rhythm: Atrial Fibrillation Interpretation Of ECG: TWI I, II, AVL, V4-[address] CHANGES Rate From EC (BPM) O2 Sat by Pulse Oximetry: 98 (ON RA) Pulse Ox Interpretation: Normal Progress - Re-Evaluation Re-evaluation Note: 10/09/17 20:36 D/W DR Sylvia BARRETT RESIDENTIAL SUBSTANCE ABUSE COUNSELOR AWARE OF ER FINDINGS, WILL ADMIT - Data Reviewed Data Reviewed: Lab, Diagnostic imaging, EKG, Old records - Continuity of Care Discussed patient case with:: Patient, On-call PMD-pt unassigned Medical Decision Making Medical Decision Making: Impression: AFib episode Plan: * EKG * Labs * CXR Disposition Counseled Patient/Family Regarding: Studies Performed, Diagnosis - Disposition Disposition: HOSPITALIZED Disposition Time: 20:38 Condition: SERIOUS - POA Present On Arrival: Poor Glycemic Control - Clinical Impression Clinical Impression: Chest pain, Rapid atrial fibrillation - Scribe Statement The provider has reviewed the documentation as recorded by the Scribe Heath Michelle All medical record entries made by the Scribe were at my direction and personally dictated by me. I have reviewed the chart and agree that the record accurately reflects my personal performance of the history, physical exam, medical decision making, and the department course for this patient. I have also personally directed, reviewed, and agree with the discharge instructions and disposition.
[2017-10-09 20:11] LABS: BASO # 0.1 K/uL (0.0-0.2); BASO % 0.8 % (0.0-2.0); EOS # 0.8 K/uL (0.0-0.7); EOS % 7.6 % (0.0-4.0); HEMOGLOBIN 15.5 g/dL (12.0-18.0); LYMPH # 1.8 K/uL (1.0-4.3); LYMPH % 16.6 % (20.0-40.0); MEAN CORPUSCULAR HEMOGLOBIN 29.1 pg (27.0-31.0); MEAN PLATELET VOLUME 7.5 fL (7.2-11.7); MONO % 8.9 % (0.0-10.0); NEUT # 7.1 K/uL (1.8-7.0); NEUT % 66.1 % (50.0-75.0); RBC 5.33 Mil/uL (4.40-5.90); RED CELL DISTRIBUTION WIDTH 18.5 % (11.5-14.5); WHITE BLOOD COUNT 10.7 K/uL (4.8-10.8)
[2017-10-09 20:14] LABS: INR 1.8
[2017-10-09 20:16] LABS: MEAN CELL VOLUME 85.7 fL (80.0-94.0)
[2017-10-09 20:17] LABS: ALB/GLOB RATIO 1.6 (1.0-2.1); ALBUMIN 4.3 g/dL (3.5-5.0); ALT/SGPT 39 U/L (21-72); AST/SGOT 29 U/L (17-59); BLOOD UREA NITROGEN 9 mg/dL (9-20); CALCIUM 9.7 mg/dl (8.6-10.4); GFR AFRICAN-AMERICAN > 60; GFR NON-AFRICAN AMERICAN > 60
[2017-10-09 20:19] LABS: PROTHROMBIN TIME 20.1 SECONDS (9.7-12.2)
[2017-10-09 20:29] LABS: B-TYPE NATRIURETIC PEPTIDE 4400 pg/mL (0-900)
[2017-10-09 23:03] VITALS: BMI 28.3
[2017-10-10 01:42] LABS: CK-MB 3.33 ng/mL (0.0-3.38); TROPONIN I 0.191 ng/mL (0.00-0.120)
--- NOTE | 2017-10-10 03:07 | CP.PCM.PN ---
Subjective - Date & Time of Evaluation Date of Evaluation: 10/10/17 Time of Evaluation: 03:01 - Subjective Subjective: Patient's nurse called me house resident for the night, for positive second troponin with known T-wave inversion in anterior lateral leads x2. Third EKG confirmed T-wave inversion in anterior leads and with new ST abnormality. Patient is without chest pain. Patient's nurse advised/recommended/urged by to call patient's PMD and most importantly to reach out to the consulted environmental field technician, Dr. Kirk for any recommendation. Objective - Vital Signs/Intake and Output Vital Signs (last 24 hours): Temp Pulse Resp BP Pulse Ox 98.1 F 71 20 108/69 96 10/09/17 23:25 10/09/17 23:25 10/09/17 23:25 10/09/17 23:25 10/09/17 23:25 - Medications Medications: Current Medications Apixaban (Eliquis) 5 mg PO BID [facility] Aspirin (Aspirin Chewable) 81 mg PO DAILY [facility] Clonazepam (Klonopin) 1 mg PO HS [facility] Last Admin: 10/09/17 23:41 Dose: 1 mg Clopidogrel Bisulfate (Plavix) 75 mg PO DAILY [facility] Digoxin (Digoxin) 0.125 mg PO DAILY@1800 [facility] Diltiazem HCl (Cardizem Cd) 300 mg PO DAILY [facility] Diphenhydramine HCl (Benadryl) 25 mg PO HS [facility] Last Admin: 10/09/17 23:41 Dose: 25 mg Furosemide (Lasix) 20 mg PO DAILY [facility] Isosorbide Mononitrate (Imdur Er) 30 mg PO DAILY [facility] Lamotrigine (Lamictal) 100 mg PO BID [facility] Metoprolol Tartrate (Lopressor) 100 mg PO BID [facility] Pantoprazole Sodium (Protonix Ec Tab) 40 mg PO DAILY [facility] Potassium Chloride (K-Dur 20 Meq Er Tab) 20 meq PO DAILY [facility] Rosuvastatin Calcium (Crestor) 40 mg PO HS [facility] - Labs Labs: 10/09/17 19:58 10/09/17 19:58 PT 20.1 SECONDS (9.7-12.2) H 10/09/17 19:58 INR 1.8 10/09/17 19:58 APTT 92 SECONDS (21-34) H 10/09/17 19:58
--- NOTE | 2017-10-10 08:19 | RAD ---
Date of service: 10/09/2017 PROCEDURE: CHEST RADIOGRAPH, 1 VIEW HISTORY: RAPID AFIB COMPARISON: 08/18/2017. FINDINGS: LUNGS: The lungs are well inflated and clear. PLEURA: No pneumothorax or pleural fluid seen. CARDIOVASCULAR: There is mild cardiomegaly. Status post CABG. OSSEOUS STRUCTURES: No significant abnormalities. VISUALIZED UPPER ABDOMEN: Normal. OTHER FINDINGS: None. IMPRESSION: No acute findings.
[2017-10-10 08:49] LABS: CK-MB 3.14 ng/mL (0.0-3.38)
[2017-10-10 08:51] LABS: TROPONIN I 0.146 ng/mL (0.00-0.120)
[2017-10-10] MEDS: diltiaZEM 300 mg/24 Hours CD Cap PO SCH (09:30)
[2017-10-10] MEDS: Potassium Chloride 20 mEq ER Tab PO SCH (09:30)
[2017-10-10] MEDS: Pantoprazole 40 mg EC Tab PO SCH (09:30)
[2017-10-10] MEDS: Digoxin 125 mcg (0.125 mg) Tab PO SCH (17:33)
[2017-10-10 18:07] LABS: CK-MB 2.9 ng/mL (0.0-3.38)
[2017-10-10 18:08] LABS: TROPONIN I 0.107 ng/mL (0.00-0.120)
--- NOTE | 2017-10-10 18:43 | CP.PCM.CON ---
History of Present Illness - History of Present Illness History of Present Illness: I was asked to see patient by Dr campbell Patient is a 61 year old male with PMH HTN cardaic surgery ( congenital subaortic membrae), atrial fibrillation who presents with palpitations. The patient follow with a Dr Stokes in [place] (associate of Dr Flores), and had an elective cardioversion 5 days ago. He states he did well but developed palpitiatons, and was brought to the ER. He is in atrial fibrillation. He had intermittent dsypnea. He denies chest pain. Review of Systems - Constitutional Constitutional: absent: As Per HPI, Anorexia, Chills, Daytime Sleepiness, Excessive Sweating, Fatigue, Fever, Frequent Falls, Headache, Increased Appetite , Lethargy, Malaise, Night Sweats, Snoring, Sleep Apnea, Weight Gain, Weight Loss, Weakness, Other - EENT Eyes: absent: As Per HPI, Blind Spots, Blurred Vision, Change in Vision, Decreased Night Vision, Diplopia, Discharge, Dry Eye, Exophthalmos, Floaters, Irritation, Itchy Eyes, Loss of Peripheral Vision, Pain, Photophobia, Requires Corrective Lenses, Sees Flashes, Spots in Vision, Tunnel Vision, Other Visual Disturbances, Loss of Vision, Other Ears: absent: As Per HPI, Decreased Hearing, Ear Discharge, Ear Pain, Tinnitus, Abnormal Hearing, Disequilibrium, Dizziness, Other - Cardiovascular Cardiovascular: Dyspnea, Palpitations - Respiratory Respiratory: Dyspnea - Gastrointestinal Gastrointestinal: absent: As Per HPI, Abdominal Pain, Belching, Bloating, Change in Bowel Habits, Change in Stool Character, Coffee Ground Emesis, Constipation, Cramping, Diarrhea, Dyspepsia, Dysphagia, Early Satiety, Excessive Flatus, Fecal Incontinence, Heartburn, Hematemesis, Hematochezia, Loose Stools, Melena, Nausea, Odynophagia, Temesmus, Vomiting, Other - Genitourinary Genitourinary: absent: As Per HPI, Change in Urinary Stream, Difficulty Urinating, Dysuria, Flank Pain, Hematuria, Pyuria, Nocturia, Urinary Incontinence, Urinary Frequency, Urinary Hesitance, Urinary Urgency, Voiding Freq/Small Amts, Freq UTI, Hx Renal/Bladder Calculi, Hx /Renal Surgery, Bladder Distension, Other - Musculoskeletal Musculoskeletal: absent: As Per HPI, Abnormal Gait, Arthralgias, Atrophy, Back Pain, Deformity, Joint Swelling, Limited Range of Motion, Loss of Height, Muscle Cramps, Muscle Weakness, Myalgias, Neck Pain, Numbness, Radiating Pain into Limb, Stiffness, Tingling, Other - Integumentary Integumentary: absent: As Per HPI, Acne, Alopecia, Bleeding Lesions, Change in Hair, Change in Nails, Change in Pigmentation, Changing Lesions, Dry Skin, Erythema, Furuncle, Hirsutism, Lesions, New Lesions, Non-Healing Lesions, Photosensitivity, Pruritus, Rash, Skin Pain, Skin Ulcer, Sores, Striae, Swelling , Unusual Bruising, Wounds, Jaundice, Other - Neurological Neurological: absent: As Per HPI, Abnormal Gait, Abnormal Hearing, Abnormal Movements, Abnormal Speech, Behavioral Changes, Burning Sensations, Confusion, Convulsions, Disequilibrium, Dizziness, Numbness, Focal Weakness, Frequent Falls , Headaches, Lack of Coordination, Loss of Vision, Memory Loss, Paresthesias, Radicular Pain, Restless Legs, Sensory Deficit, Syncope, Tingling, Tremor, Vertigo, Weakness, Other Visual Disturbances, Other - Psychiatric Psychiatric: absent: As Per HPI, Abnormal Sleep Pattern, Anhedonia, Anxiety, Auditory Hallucinations, Behavioral Changes, Change in Appetite, Change in Libido, Confusion, Depression, Difficulty Concentrating, Hallucinations, Homicidal Ideation, Hopelessness, Irritability, Memory Loss, Mood Swings, Panic Attacks, Paranoia, Suicidal Ideation, Visual Hallucinations, Tactile Hallucinations, Other - Endocrine Endocrine: absent: As Per HPI, Change in Body Appearance, Change in Libido, Cold Intolorance, Deepening of Voice, Excessive Sweating, Fatigue, Flushing, Heat Intolorance, Increase in Ring/Shoe/Hat Size, Palpitations, Polydipsia, Polyphagia, Polyuria, Other - Hematologic/Lymphatic Hematologic: absent: As Per HPI, Easy Bleeding, Easy Bruising, Lymphadenopathy, Other Past Patient History - Infectious Disease Hx of Infectious Diseases: None - Past Medical History & Family History Past Medical History?: Yes - Past Social History Smoking Status: Heavy Smoker > 10 Cigarettes Daily - CARDIAC Hx Cardiac Disorders: Yes Hx Atrial Fibrillation: Yes Hx Hypertension: Yes - PULMONARY Hx Respiratory Disorders: No - NEUROLOGICAL Hx Neurological Disorder: No - HEENT Hx HEENT Problems: Yes Other/Comment: wear reading eyeglasses - RENAL Hx Chronic Kidney Disease: No - ENDOCRINE/METABOLIC Hx Endocrine Disorders: No - HEMATOLOGICAL/ONCOLOGICAL Hx Blood Disorders: No - INTEGUMENTARY Hx Dermatological Problems: No - MUSCULOSKELETAL/RHEUMATOLOGICAL Hx Musculoskeletal Disorders: No Hx Falls: No - GASTROINTESTINAL Hx Gastrointestinal Disorders: No - GENITOURINARY/GYNECOLOGICAL Hx Genitourinary Disorders: No - PSYCHIATRIC Hx Bipolar Disorder: Yes Hx Depression: Yes Hx Substance Use: No - SURGICAL HISTORY Hx Surgeries: Yes Hx Tonsillectomy: Yes - ANESTHESIA Hx Anesthesia: Yes Hx Anesthesia Reactions: No Hx Malignant Hyperthermia: No Has any member of the family had a problem w/ anesthesia?: No Meds Allergies/Adverse Reactions: Allergies Allergy/AdvReac Type Severity Reaction Status Date / Time No Known Allergies Allergy Verified 10/09/17 19:52 - Medications Medications: Current Medications Apixaban (Eliquis) 5 mg PO BID [facility] Last Admin: 10/10/17 17:33 Dose: 5 mg Aspirin (Aspirin Chewable) 81 mg PO DAILY [facility] Last Admin: 10/10/17 09:30 Dose: 81 mg Clonazepam (Klonopin) 1 mg PO [facility] Last Admin: 10/09/17 23:41 Dose: 1 mg Clopidogrel Bisulfate (Plavix) 75 mg PO DAILY [facility] Last Admin: 10/10/17 09:30 Dose: 75 mg Digoxin (Digoxin) 0.125 mg PO DAILY@1800 [facility] Last Admin: 10/10/17 17:33 Dose: 0.125 mg Diltiazem HCl (Cardizem Cd) 300 mg PO DAILY [facility] Last Admin: 10/10/17 09:30 Dose: 300 mg Diphenhydramine HCl (Benadryl) 25 mg PO HS [facility] Last Admin: 10/09/17 23:41 Dose: 25 mg Furosemide (Lasix) 20 mg PO DAILY [facility] Last Admin: 10/10/17 09:30 Dose: 20 mg Isosorbide Mononitrate (Imdur Er) 30 mg PO DAILY [facility] Last Admin: 10/10/17 09:30 Dose: 30 mg Lamotrigine (Lamictal) 100 mg PO BID [facility] Last Admin: 10/10/17 17:33 Dose: 100 mg Metoprolol Tartrate (Lopressor) 100 mg PO BID [facility] Last Admin: 10/10/17 17:33 Dose: 100 mg Nicotine (Nicoderm Cq) 1 patch TD DAILY [facility] Pantoprazole Sodium (Protonix Ec Tab) 40 mg PO DAILY [facility] Last Admin: 10/10/17 09:30 Dose: 40 mg Potassium Chloride (K-Dur 20 Meq Er Tab) 20 meq PO DAILY [facility] Last Admin: 10/10/17 09:30 Dose: 20 meq Rosuvastatin Calcium (Crestor) 40 mg PO [facility] Physical Exam - Constitutional Appears: Non-toxic - Head Exam Head Exam: NORMAL INSPECTION - Eye Exam Eye Exam: Normal appearance - ENT Exam ENT Exam: Mucous Membranes Moist - Neck Exam Neck exam: Positive for: Full Rom - Respiratory Exam Respiratory Exam: Decreased Breath Sounds - Cardiovascular Exam Cardiovascular Exam: Irregular Rhythm - GI/Abdominal Exam GI & Abdominal Exam: Normal Bowel Sounds - Rectal Exam Rectal Exam: Deferred - Extremities Exam Extremities exam: Negative for: pedal edema - Back Exam Back exam: NORMAL INSPECTION Results - Vital Signs Recent Vital Signs: Last Vital Signs Temp 97.3 F L 10/10/17 16:00 Pulse 68 10/10/17 17:52 Resp 20 10/10/17 16:00 BP 117/62 10/10/17 16:00 Pulse Ox 97 10/10/17 16:00 - Labs Result Diagrams: 10/09/17 19:58 10/09/17 19:58 Labs: Laboratory Results - last 24 hr 10/09/17 10/09/17 10/09/17 19:58 19:58 19:58 WBC 10.7 RBC 5.33 Hgb 15.5 Hct 45.6 MCV 85.7 D MCH 29.1 MCHC 34.0 RDW 18.5 H Plt Count 271 MPV 7.5 Neut % (Auto) 66.1 Lymph % (Auto) 16.6 L Emanuel % (Auto) 8.9 Eos % (Auto) 7.6 H Baso % (Auto) 0.8 Neut # (Auto) 7.1 H Lymph # (Auto) 1.8 Emanuel # (Auto) 1.0 H Eos # (Auto) 0.8 H Baso # (Auto) 0.1 PT 20.1 H INR 1.8 APTT 92 H Sodium 136 Potassium 3.4 L Chloride 99 Carbon Dioxide 23 Anion Gap 17 BUN 9 Creatinine 1.0 Est GFR ( Amer) > 60 Est GFR (Non-Af Amer) > 60 Random Glucose 112 H Calcium 9.7 Total Bilirubin 0.9 AST 29 ALT 39 Alkaline Phosphatase 112 Total Creatine Kinase CK-MB (Mass) Troponin I 0.0660 NT-Pro-B Natriuret Pep 4400 H Total Protein 7.0 Albumin 4.3 Globulin 2.7 Albumin/Globulin Ratio 1.6 Digoxin 10/09/17 10/10/17 10/10/17 19:58 00:15 07:43 WBC RBC Hgb Hct MCV MCH MCHC RDW Plt Count MPV Neut % (Auto) Lymph % (Auto) Emanuel % (Auto) Eos % (Auto) Baso % (Auto) Neut # (Auto) Lymph # (Auto) Emanuel # (Auto) Eos # (Auto) Baso # (Auto) PT INR APTT Sodium Potassium Chloride Carbon Dioxide Anion Gap BUN Creatinine Est GFR ( Amer) Est GFR (Non-Af Amer) Random Glucose Calcium Total Bilirubin AST ALT Alkaline Phosphatase Total Creatine Kinase 80 76 CK-MB (Mass) 3.33 3.14 Troponin I 0.1910 H* 0.1460 H* NT-Pro-B Natriuret Pep Total Protein Albumin Globulin Albumin/Globulin Ratio Digoxin 0.5 L 10/10/17 16:58 WBC RBC Hgb Hct MCV MCH MCHC RDW Plt Count MPV Neut % (Auto) Lymph % (Auto) Emanuel % (Auto) Eos % (Auto) Baso % (Auto) Neut # (Auto) Lymph # (Auto) Emanuel # (Auto) Eos # (Auto) Baso # (Auto) PT INR APTT Sodium Potassium Chloride Carbon Dioxide Anion Gap BUN Creatinine Est GFR ( Amer) Est GFR (Non-Af Amer) Random Glucose Calcium Total Bilirubin AST ALT Alkaline Phosphatase Total Creatine Kinase 75 CK-MB (Mass) 2.90 Troponin I 0.1070 NT-Pro-B Natriuret Pep Total Protein Albumin Globulin Albumin/Globulin Ratio Digoxin - EKG Data EKG Interpreted by: Myself Assessment & Plan (1) Atrial fibrillation Assessment and Plan: will continue rate control, anticoagulation with Eliquis. recommend follow up with his primary clinical education assistant and consider atrial fibrillation ablation. Status: Acute Priority: High (2) Aortic valve disease Assessment and Plan: There is thickenig of the aoritc valve leaflet and outflow tract obstruction. This creates a gradient. I recommend medical therapy at this time, but patinet should follow up with his clinical education assistant. can discharge in am Status: Acute
--- NOTE | 2017-10-10 19:35 | CP.PCM.HP ---
Past Patient History - Infectious Disease Hx of Infectious Diseases: None - Past Medical History & Family History Past Medical History?: Yes - Past Social History Smoking Status: Heavy Smoker > 10 Cigarettes Daily - CARDIAC Hx Cardiac Disorders: Yes Hx Atrial Fibrillation: Yes Hx Hypertension: Yes - PULMONARY Hx Respiratory Disorders: No - NEUROLOGICAL Hx Neurological Disorder: No - HEENT Hx HEENT Problems: Yes Other/Comment: wear reading eyeglasses - RENAL Hx Chronic Kidney Disease: No - ENDOCRINE/METABOLIC Hx Endocrine Disorders: No - HEMATOLOGICAL/ONCOLOGICAL Hx Blood Disorders: No - INTEGUMENTARY Hx Dermatological Problems: No - MUSCULOSKELETAL/RHEUMATOLOGICAL Hx Musculoskeletal Disorders: No Hx Falls: No - GASTROINTESTINAL Hx Gastrointestinal Disorders: No - GENITOURINARY/GYNECOLOGICAL Hx Genitourinary Disorders: No - PSYCHIATRIC Hx Bipolar Disorder: Yes Hx Depression: Yes Hx Substance Use: No - SURGICAL HISTORY Hx Surgeries: Yes Hx Tonsillectomy: Yes - ANESTHESIA Hx Anesthesia: Yes Hx Anesthesia Reactions: No Hx Malignant Hyperthermia: No Has any member of the family had a problem w/ anesthesia?: No Meds Allergies/Adverse Reactions: Allergies Allergy/AdvReac Type Severity Reaction Status Date / Time No Known Allergies Allergy Verified 10/09/17 19:52 Physical Exam - Constitutional Appears: Well - Head Exam Head Exam: ATRAUMATIC, NORMAL INSPECTION, NORMOCEPHALIC - Eye Exam Eye Exam: EOMI, Normal appearance, PERRL Pupil Exam: NORMAL ACCOMODATION, PERRL - ENT Exam ENT Exam: Mucous Membranes Moist, Normal Exam - Neck Exam Neck exam: Positive for: Normal Inspection - Respiratory Exam Respiratory Exam: Decreased Breath Sounds - Cardiovascular Exam Cardiovascular Exam: REGULAR RHYTHM, +S1, +S2 - GI/Abdominal Exam GI & Abdominal Exam: Diminished Bowel Sounds, Soft - Rectal Exam Rectal Exam: Deferred Results - Vital Signs Recent Vital Signs: Last Vital Signs Temp 97.3 F L 10/10/17 16:00 Pulse 68 10/10/17 17:52 Resp 20 10/10/17 16:00 BP 117/62 10/10/17 16:00 Pulse Ox 97 10/10/17 16:00 - Labs Result Diagrams: 10/09/17 19:58 10/09/17 19:58 Labs: Laboratory Results - last 24 hr 10/09/17 10/09/17 10/09/17 19:58 19:58 19:58 WBC 10.7 RBC 5.33 Hgb 15.5 Hct 45.6 MCV 85.7 D MCH 29.1 MCHC 34.0 RDW 18.5 H Plt Count 271 MPV 7.5 Neut % (Auto) 66.1 Lymph % (Auto) 16.6 L [place] % (Auto) 8.9 Eos % (Auto) 7.6 H Baso % (Auto) 0.8 Neut # (Auto) 7.1 H Lymph # (Auto) 1.8 [place] # (Auto) 1.0 H Eos # (Auto) 0.8 H Baso # (Auto) 0.1 PT 20.1 H INR 1.8 APTT 92 H Sodium 136 Potassium 3.4 L Chloride 99 Carbon Dioxide 23 Anion Gap 17 BUN 9 Creatinine 1.0 Est GFR ( Amer) > 60 Est GFR (Non-Af Amer) > 60 Random Glucose 112 H Calcium 9.7 Total Bilirubin 0.9 AST 29 ALT 39 Alkaline Phosphatase 112 Total Creatine Kinase CK-MB (Mass) Troponin I 0.0660 NT-Pro-B Natriuret Pep 4400 H Total Protein 7.0 Albumin 4.3 Globulin 2.7 Albumin/Globulin Ratio 1.6 Digoxin 10/09/17 10/10/17 10/10/17 19:58 00:15 07:43 WBC RBC Hgb Hct MCV MCH MCHC RDW Plt Count MPV Neut % (Auto) Lymph % (Auto) [place] % (Auto) Eos % (Auto) Baso % (Auto) Neut # (Auto) Lymph # (Auto) [place] # (Auto) Eos # (Auto) Baso # (Auto) PT INR APTT Sodium Potassium Chloride Carbon Dioxide Anion Gap BUN Creatinine Est GFR ( Amer) Est GFR (Non-Af Amer) Random Glucose Calcium Total Bilirubin AST ALT Alkaline Phosphatase Total Creatine Kinase 80 76 CK-MB (Mass) 3.33 3.14 Troponin I 0.1910 H* 0.1460 H* NT-Pro-B Natriuret Pep Total Protein Albumin Globulin Albumin/Globulin Ratio Digoxin 0.5 L 10/10/17 16:58 WBC RBC Hgb Hct MCV MCH MCHC RDW Plt Count MPV Neut % (Auto) Lymph % (Auto) [place] % (Auto) Eos % (Auto) Baso % (Auto) Neut # (Auto) Lymph # (Auto) [place] # (Auto) Eos # (Auto) Baso # (Auto) PT INR APTT Sodium Potassium Chloride Carbon Dioxide Anion Gap BUN Creatinine Est GFR ( Amer) Est GFR (Non-Af Amer) Random Glucose Calcium Total Bilirubin AST ALT Alkaline Phosphatase Total Creatine Kinase 75 CK-MB (Mass) 2.90 Troponin I 0.1070 NT-Pro-B Natriuret Pep Total Protein Albumin Globulin Albumin/Globulin Ratio Digoxin
--- NOTE | 2017-10-10 20:15 | CARD ---
APPROVED REPORT Date of service: 10/10/2017 EXAM: LIMITED Two-dimensional and M-mode echocardiogram with Doppler and color Doppler. Other Information Quality : GoodRhythm : INDICATION Abnormal EKG/Arrhythmia LV Function:SystolicDiastolic elevated troponin, repeat echo for LV function 2D DIMENSIONS IVSd1.9 (0.7-1.1cm)LVDd5.2 (3.9-5.9cm) LVOT Diameter2.0 (1.8-2.4cm)PWd1.5 (0.7-1.1cm) LVDs4.3 (2.5-4.0cm)FS (%) 16.5 % LVEF (%)70.0 (>50%) M-Mode DIMENSIONS RVDd1.81 (2.1-3.2cm)Left Atrium (MM)6.03 (2.5-4.0cm) IVSd1.15 (0.7-1.1cm)Aortic Root3.62 (2.2-3.7cm) LVDd6.59 (4.0-5.6cm)Aortic Cusp Exc.1.49 (1.5-2.0cm) PWd1.11 (0.7-1.1cm)FS (%) 48 % LVDs3.46 (2.0-3.8cm)LVEF (%)78 (>50%) Aortic Valve AoV Peak Yfwtmcvk060.7cm/sAoV VTI79.9cmAO Peak GR.66mmHg LVOT Peak Gtifphmu857.2cm/sLVOT VTI29.90cmAO Mean GR.35mmHg LEE (VMAX)0.50rn2CEK (VTI)1.65dj3EA P 1/2 [id number] Mitral Valve MV E Kqxyagoy261.0cm/sE/A ratio0.0 TDI E/Lateral E'0.0E/Medial E'0.0 Tricuspid Valve TR Peak Ogegadbk238vs/sTR Peak Gr.53hiAbXKGE05awOk LEFT VENTRICLE The left ventricle is normal size. There is moderate concentric left ventricular hypertrophy. The left ventricular function is hyperdynamic. The left ventricular ejection fraction is within the normal range. About 80% No regional wall motion abnormalities noted. The left ventricular diastolic function is normal. No left ventricle thrombus noted on this study. There is no ventricular septal defect visualized. There is no left ventricular aneurysm. There is no mass noted in the left ventricle. RIGHT VENTRICLE The right ventricle is normal size. There is normal right ventricular wall thickness. The right ventricular systolic function is normal. ATRIA The left atrial volume index is moderately increased. The right atrium size is normal. The interatrial septum is intact with no evidence for an atrial septal defect. AORTIC VALVE Trileflet aortic valve with thickened leaflets. The non coronary cusp demonstrates reduced excursion. Peak gradients are vvery variable due to atrial fibrillation, ranging from 67 to 84 mm Hg. Visually aortic stenosis severity is moderate, and averaged valve area came to 1.2 cm2. Severe aortic regurgitation is present. There is no aortic valvular vegetation. MITRAL VALVE The mitral valve is normal in structure and function. There is no evidence of mitral valve prolapse. There is no mitral valve stenosis. There is mild mitral valve regurgitation noted. TRICUSPID VALVE The tricuspid valve is normal in structure and function. There is mild tricuspid valve regurgitation noted. There is no tricuspid valve prolapse or vegetation. There is no tricuspid valve stenosis. PULMONIC VALVE The pulmonary valve is normal in structure and function. There is no pulmonic valvular regurgitation. There is no pulmonic valvular stenosis. GREAT VESSELS The aortic root is normal in size. The ascending aorta is normal in size. The pulmonary artery is normal. The IVC is normal in size and collapses >50% with inspiration. PERICARDIAL EFFUSION The pericardium appears normal. There is no pleural effusion. <Conclusion> The left atrial volume index is moderately increased. The left ventricular function is hyperdynamic. Trileaflet aortic valve with thickened leaflets. The non coronary cusp demonstrates reduced excursion. Peak gradients are very variable due to atrial fibrillation, ranging from 67 to 84 mm Hg. Visually aortic stenosis severity is moderate, and averaged valve area came to 1.2 cm2. The left ventricular function is hyperdynamic. There is moderate concentric left ventricular hypertrophy.
--- NOTE | 2017-10-10 20:47 | CARD ---
APPROVED REPORT Date of service: 10/09/2017 EKG Measurement Heart [id number] <Conclusion> Atrial fibrillation Moderate voltage criteria for LVH, may be normal variant Marked ST abnormality, possible lateral subendocardial injury Abnormal ECG
[2017-10-11 08:45] LABS: BASO # 0.1 K/uL (0.0-0.2); BASO % 0.7 % (0.0-2.0); EOS # 0.7 K/uL (0.0-0.7); LYMPH # 1.7 K/uL (1.0-4.3); LYMPH % 11.7 % (20.0-40.0); MEAN CELL VOLUME 85.2 fL (80.0-94.0); MEAN CORPUSCULAR HEMOGLOBIN 29.3 pg (27.0-31.0); MEAN CORPUSCULAR HGB CONC 34.4 g/dL (33.0-37.0); MEAN PLATELET VOLUME 7.9 fL (7.2-11.7); MONO # 1.4 K/uL (0.0-0.8); MONO % 9.1 % (0.0-10.0); NEUT % 73.5 % (50.0-75.0); NRBC % 0.1 % (0.0-2.0); RBC 4.77 Mil/uL (4.40-5.90); RED CELL DISTRIBUTION WIDTH 18.4 % (11.5-14.5); WHITE BLOOD COUNT 14.9 K/uL (4.8-10.8)
[2017-10-11 08:56] LABS: ALB/GLOB RATIO 1.8 (1.0-2.1); ALBUMIN 4.4 g/dL (3.5-5.0); ALT/SGPT 33 U/L (21-72); AST/SGOT 31 U/L (17-59); BLOOD UREA NITROGEN 13 mg/dL (9-20); CALCIUM 9.8 mg/dl (8.6-10.4); GFR AFRICAN-AMERICAN > 60; GFR NON-AFRICAN AMERICAN > 60
[2017-10-11] MEDS: Pantoprazole 40 mg EC Tab PO SCH (09:15)
--- NOTE | 2017-10-11 09:15 | CP.PCM.PN ---
Subjective - Date & Time of Evaluation Date of Evaluation: 10/11/17 Time of Evaluation: 08:30 - Subjective Subjective: had periods of tachycardia this am. Objective - Vital Signs/Intake and Output Vital Signs (last 24 hours): Temp Pulse Resp BP Pulse Ox 97.9 F 113 H 20 151/75 H 97 10/11/17 07:00 10/11/17 07:00 10/11/17 07:00 10/11/17 07:00 10/11/17 07:00 Intake and Output: 10/11/17 10/11/17 06:59 18:59 Output Total 2 Balance -2 - Medications Medications: Current Medications Amiodarone HCl (Cordarone) 200 mg PO DAILY [facility] Apixaban (Eliquis) 5 mg PO BID [facility] Last Admin: 10/10/17 17:33 Dose: 5 mg Aspirin (Aspirin Chewable) 81 mg PO DAILY [facility] Last Admin: 10/10/17 09:30 Dose: 81 mg Clonazepam (Klonopin) 1 mg PO HS [facility] Last Admin: 10/10/17 21:30 Dose: 1 mg Clopidogrel Bisulfate (Plavix) 75 mg PO DAILY [facility] Last Admin: 10/10/17 09:30 Dose: 75 mg Digoxin (Digoxin) 0.125 mg PO DAILY@1800 [facility] Last Admin: 10/10/17 17:33 Dose: 0.125 mg Diltiazem HCl (Cardizem Cd) 300 mg PO DAILY [facility] Last Admin: 10/10/17 09:30 Dose: 300 mg Diphenhydramine HCl (Benadryl) 25 mg PO HS [facility] Last Admin: 10/10/17 21:30 Dose: 25 mg Furosemide (Lasix) 20 mg PO DAILY [facility] Last Admin: 10/10/17 09:30 Dose: 20 mg Isosorbide Mononitrate (Imdur Er) 30 mg PO DAILY [facility] Last Admin: 10/10/17 09:30 Dose: 30 mg Lamotrigine (Lamictal) 100 mg PO BID [facility] Last Admin: 10/10/17 17:33 Dose: 100 mg Metoprolol Tartrate (Lopressor) 100 mg PO BID [facility] Last Admin: 10/10/17 17:33 Dose: 100 mg Nicotine (Nicoderm Cq) 1 patch TD DAILY [facility] Last Admin: 10/10/17 19:32 Dose: 1 patch Pantoprazole Sodium (Protonix Ec Tab) 40 mg PO DAILY [facility] Last Admin: 10/10/17 09:30 Dose: 40 mg Potassium Chloride (K-Dur 20 Meq Er Tab) 20 meq PO DAILY [facility] Last Admin: 10/10/17 09:30 Dose: 20 meq Rosuvastatin Calcium (Crestor) 40 mg PO HS [facility] Last Admin: 10/10/17 21:30 Dose: 40 mg - Labs Labs: 10/11/17 08:27 10/11/17 08:27 PT 20.1 SECONDS (9.7-12.2) H 10/09/17 19:58 INR 1.8 10/09/17 19:58 APTT 92 SECONDS (21-34) H 10/09/17 19:58 - Constitutional Appears: Non-toxic - Head Exam Head Exam: NORMAL INSPECTION - Eye Exam Eye Exam: Normal appearance - ENT Exam ENT Exam: Mucous Membranes Moist - Neck Exam Neck Exam: Full ROM - Respiratory Exam Respiratory Exam: Decreased Breath Sounds - Cardiovascular Exam Cardiovascular Exam: Irregular Rhythm - GI/Abdominal Exam GI & Abdominal Exam: Normal Bowel Sounds - Rectal Exam Rectal Exam: Deferred - Extremities Exam Extremities Exam: Pedal Edema - Back Exam Back Exam: NORMAL INSPECTION - Neurological Exam Neurological Exam: Alert - Psychiatric Exam Psychiatric exam: Normal Affect - Skin Skin Exam: Normal Color Assessment and Plan (1) Atrial fibrillation Assessment & Plan: will start amiodarone Status: Acute (2) Aortic valve disease Status: Acute
[2017-10-11] MEDS: Potassium Chloride 20 mEq ER Tab PO SCH (09:16)
[2017-10-11] MEDS: diltiaZEM 300 mg/24 Hours CD Cap PO SCH (09:22)
--- NOTE | 2017-10-11 13:08 | CP.PCM.PN ---
Subjective - Date & Time of Evaluation Date of Evaluation: 10/11/17 Time of Evaluation: 08:40 - Subjective Subjective: clinically same Objective - Vital Signs/Intake and Output Vital Signs (last 24 hours): Temp Pulse Resp BP Pulse Ox 97.9 F 113 H 20 131/77 97 10/11/17 07:00 10/11/17 07:00 10/11/17 07:00 10/11/17 09:15 10/11/17 07:00 Intake and Output: 10/11/17 10/11/17 06:59 18:59 Output Total 2 Balance -2 - Medications Medications: Current Medications Amiodarone HCl (Cordarone) 200 mg PO DAILY [facility] Last Admin: 10/11/17 09:15 Dose: 200 mg Apixaban (Eliquis) 5 mg PO BID [facility] Last Admin: 10/11/17 09:16 Dose: 5 mg Aspirin (Aspirin Chewable) 81 mg PO DAILY [facility] Last Admin: 10/11/17 09:15 Dose: 81 mg Clonazepam (Klonopin) 1 mg PO [facility] Last Admin: 10/10/17 21:30 Dose: 1 mg Clopidogrel Bisulfate (Plavix) 75 mg PO DAILY [facility] Last Admin: 10/11/17 09:15 Dose: 75 mg Digoxin (Digoxin) 0.125 mg PO DAILY@1800 [facility] Last Admin: 10/10/17 17:33 Dose: 0.125 mg Diltiazem HCl (Cardizem Cd) 300 mg PO DAILY [facility] Last Admin: 10/11/17 09:22 Dose: 300 mg Diphenhydramine HCl (Benadryl) 25 mg PO HS [facility] Last Admin: 10/10/17 21:30 Dose: 25 mg Furosemide (Lasix) 20 mg PO DAILY [facility] Last Admin: 10/11/17 09:15 Dose: 20 mg Isosorbide Mononitrate (Imdur Er) 30 mg PO DAILY [facility] Last Admin: 10/11/17 09:16 Dose: 30 mg Lamotrigine (Lamictal) 100 mg PO BID [facility] Last Admin: 10/11/17 09:15 Dose: 100 mg Metoprolol Tartrate (Lopressor) 100 mg PO BID [facility] Last Admin: 10/11/17 09:15 Dose: 100 mg Nicotine (Nicoderm Cq) 1 patch TD DAILY [facility] Last Admin: 08/04/18 09:22 Dose: 1 patch Pantoprazole Sodium (Protonix Ec Tab) 40 mg PO DAILY [facility] Last Admin: 10/11/17 09:15 Dose: 40 mg Potassium Chloride (K-Dur 20 Meq Er Tab) 20 meq PO DAILY [facility] Last Admin: 10/11/17 09:16 Dose: 20 meq Rosuvastatin Calcium (Crestor) 40 mg PO HS [facility] Last Admin: 10/10/17 21:30 Dose: 40 mg - Labs Labs: 10/11/17 08:27 10/11/17 08:27 PT 20.1 SECONDS (9.7-12.2) H 10/09/17 19:58 INR 1.8 10/09/17 19:58 APTT 92 SECONDS (21-34) H 10/09/17 19:58 - Constitutional Appears: Well - Head Exam Head Exam: ATRAUMATIC, NORMAL INSPECTION, NORMOCEPHALIC - Eye Exam Eye Exam: EOMI, Normal appearance, PERRL Pupil Exam: NORMAL ACCOMODATION, PERRL - ENT Exam ENT Exam: Mucous Membranes Moist, Normal Exam - Neck Exam Neck Exam: Full ROM, Normal Inspection. absent: Lymphadenopathy - Respiratory Exam Respiratory Exam: Decreased Breath Sounds - Cardiovascular Exam Cardiovascular Exam: REGULAR RHYTHM, +S1, +S2 - GI/Abdominal Exam GI & Abdominal Exam: Soft, Diminished Bowel Sounds - Rectal Exam Rectal Exam: Deferred
--- NOTE | 2017-10-11 14:54 | CARD ---
APPROVED REPORT Date of service: 10/10/2017 EKG Measurement Heart [id number] <Conclusion> Atrial fibrillation ST & T wave abnormality, consider inferior ischemia ST & T wave abnormality, consider anterolateral ischemia Abnormal ECG
[2017-10-11] MEDS: Digoxin 125 mcg (0.125 mg) Tab PO SCH (18:04)
[2017-10-11] MEDS: Albuterol-Ipratrop 3 mg / 0.5 (3 ml) UD INH SCH (20:46)
[2017-10-11] MEDS: MethylPREDNISolone 40 mg Vial IVP SCH (21:13)
[2017-10-12] MEDS: Albuterol-Ipratrop 3 mg / 0.5 (3 ml) UD INH SCH ×5 (00:17→19:48)
[2017-10-12] MEDS: MethylPREDNISolone 40 mg Vial IVP SCH ×3 (06:04→21:20)
[2017-10-12 08:23] LABS: BASO % 0.1 % (0.0-2.0); EOS % 0.1 % (0.0-4.0); LYMPH # 0.8 K/uL (1.0-4.3); LYMPH % 7.1 % (20.0-40.0); MEAN CELL VOLUME 85.9 fL (80.0-94.0); MEAN CORPUSCULAR HEMOGLOBIN 29.9 pg (27.0-31.0); MEAN CORPUSCULAR HGB CONC 34.8 g/dL (33.0-37.0); MEAN PLATELET VOLUME 8.1 fL (7.2-11.7); MONO # 0.2 K/uL (0.0-0.8); NEUT # 10.5 K/uL (1.8-7.0); NEUT % 90.7 % (50.0-75.0); PLATELET COUNT 241 K/uL (130-400); RED CELL DISTRIBUTION WIDTH 18.4 % (11.5-14.5); WHITE BLOOD COUNT 11.6 K/uL (4.8-10.8)
[2017-10-12 08:43] LABS: ALB/GLOB RATIO 1.6 (1.0-2.1); ALBUMIN 4.8 g/dL (3.5-5.0); ALT/SGPT 27 U/L (21-72); AST/SGOT 29 U/L (17-59); BLOOD UREA NITROGEN 13 mg/dL (9-20); CALCIUM 10.4 mg/dl (8.6-10.4); GFR AFRICAN-AMERICAN > 60; GFR NON-AFRICAN AMERICAN > 60
[2017-10-12 09:25] LABS: ANISOCYTOSIS SLIGHT; BANDS 1 % (0-2); LYMPHOCYTE 10 % (20-40); MONOCYTE 1 % (0-10); NEUTROPHIL 86 % (50-75); OVALOCYTES SLIGHT; PLATELET ESTIMATE NORMAL (NORMAL); REACTIVE LYMPHOCYTES 2 % (0-0); TOTAL CELLS COUNTED 100
[2017-10-12 09:26] LABS: LARGE PLATELETS PRESENT
[2017-10-12] MEDS: diltiaZEM 300 mg/24 Hours CD Cap PO SCH (09:27)
[2017-10-12] MEDS: Potassium Chloride 20 mEq ER Tab PO SCH (09:27)
[2017-10-12] MEDS: Pantoprazole 40 mg EC Tab PO SCH (09:27)
--- NOTE | 2017-10-12 12:22 | CP.PCM.PN ---
Subjective - Date & Time of Evaluation Date of Evaluation: 10/12/17 Time of Evaluation: 12:10 - Subjective Subjective: no new complaints. Objective - Vital Signs/Intake and Output Vital Signs (last 24 hours): Temp Pulse Resp BP Pulse Ox 98.4 F 109 H 20 120/85 100 10/12/17 08:11 10/12/17 08:11 10/12/17 08:11 10/12/17 09:27 10/12/17 08:11 - Medications Medications: Current Medications Albuterol/Ipratropium (Duoneb 3 Mg/0.5 Mg (3 Ml) Ud) 3 ml INH RQ6 [facility] Last Admin: 10/12/17 07:23 Dose: 3 ml Amiodarone HCl (Cordarone) 200 mg PO DAILY [facility] Last Admin: 10/12/17 09:30 Dose: 200 mg Apixaban (Eliquis) 5 mg PO BID [facility] Last Admin: 10/12/17 09:27 Dose: 5 mg Aspirin (Aspirin Chewable) 81 mg PO DAILY [facility] Last Admin: 10/12/17 09:27 Dose: 81 mg Clonazepam (Klonopin) 1 mg PO HS [facility] Last Admin: 10/11/17 21:12 Dose: 1 mg Clopidogrel Bisulfate (Plavix) 75 mg PO DAILY [facility] Last Admin: 10/12/17 09:27 Dose: 75 mg Digoxin (Digoxin) 0.125 mg PO DAILY@1800 [facility] Last Admin: 10/11/17 18:04 Dose: 0.125 mg Diltiazem HCl (Cardizem Cd) 300 mg PO DAILY [facility] Last Admin: 10/12/17 09:27 Dose: 300 mg Diphenhydramine HCl (Benadryl) 25 mg PO HS [facility] Last Admin: 10/11/17 21:12 Dose: 25 mg Furosemide (Lasix) 20 mg PO DAILY [facility] Last Admin: 10/12/17 09:27 Dose: 20 mg Isosorbide Mononitrate (Imdur Er) 30 mg PO DAILY [facility] Last Admin: 10/12/17 09:27 Dose: 30 mg Lamotrigine (Lamictal) 100 mg PO BID [facility] Last Admin: 10/12/17 09:27 Dose: 100 mg Methylprednisolone (Solu-Medrol) 40 mg IVP Q8 [facility] Last Admin: 10/12/17 06:04 Dose: 40 mg Metoprolol Tartrate (Lopressor) 100 mg PO BID [facility] Last Admin: 10/12/17 09:27 Dose: 100 mg Nicotine (Nicoderm Cq) 1 patch TD DAILY [facility] Last Admin: 10/12/17 09:28 Dose: 1 patch Pantoprazole Sodium (Protonix Ec Tab) 40 mg PO DAILY [facility] Last Admin: 10/12/17 09:27 Dose: 40 mg Potassium Chloride (K-Dur 20 Meq Er Tab) 20 meq PO DAILY [facility] Last Admin: 10/12/17 09:27 Dose: 20 meq Rosuvastatin Calcium (Crestor) 40 mg PO HS [facility] Last Admin: 10/11/17 21:12 Dose: 40 mg - Labs Labs: 10/12/17 08:07 10/12/17 08:07 PT 20.1 SECONDS (9.7-12.2) H 10/09/17 19:58 INR 1.8 10/09/17 19:58 APTT 92 SECONDS (21-34) H 10/09/17 19:58 - Constitutional Appears: Non-toxic - Head Exam Head Exam: NORMAL INSPECTION - Eye Exam Eye Exam: Normal appearance - ENT Exam ENT Exam: Mucous Membranes Moist - Neck Exam Neck Exam: Full ROM - Respiratory Exam Respiratory Exam: NORMAL BREATHING PATTERN - Cardiovascular Exam Cardiovascular Exam: Irregular Rhythm - GI/Abdominal Exam GI & Abdominal Exam: Normal Bowel Sounds - Rectal Exam Rectal Exam: Deferred - Back Exam Back Exam: NORMAL INSPECTION - Neurological Exam Neurological Exam: Alert - Psychiatric Exam Psychiatric exam: Normal Affect - Skin Skin Exam: Normal Color Assessment and Plan (1) Atrial fibrillation Assessment & Plan: continue medical herapy. recommend discharge and follow up with his architecture drafter for possible afib ablation Status: Acute (2) Aortic valve disease Status: Acute
--- NOTE | 2017-10-12 13:30 | CP.PCM.PN ---
Subjective - Date & Time of Evaluation Date of Evaluation: 10/12/17 Time of Evaluation: 08:40 - Subjective Subjective: clinically same Objective - Vital Signs/Intake and Output Vital Signs (last 24 hours): Temp Pulse Resp BP Pulse Ox 98.4 F 109 H 20 120/85 100 10/12/17 08:11 10/12/17 08:11 10/12/17 08:11 10/12/17 09:27 10/12/17 08:11 - Medications Medications: Current Medications Albuterol/Ipratropium (Duoneb 3 Mg/0.5 Mg (3 Ml) Ud) 3 ml INH RQ6 [facility] Last Admin: 10/12/17 13:23 Dose: 3 ml Amiodarone HCl (Cordarone) 200 mg PO DAILY [facility] Last Admin: 10/12/17 09:30 Dose: 200 mg Apixaban (Eliquis) 5 mg PO BID [facility] Last Admin: 10/12/17 09:27 Dose: 5 mg Aspirin (Aspirin Chewable) 81 mg PO DAILY [facility] Last Admin: 10/12/17 09:27 Dose: 81 mg Clonazepam (Klonopin) 1 mg PO HS [facility] Last Admin: 10/11/17 21:12 Dose: 1 mg Clopidogrel Bisulfate (Plavix) 75 mg PO DAILY [facility] Last Admin: 10/12/17 09:27 Dose: 75 mg Digoxin (Digoxin) 0.125 mg PO DAILY@1800 [facility] Last Admin: 10/11/17 18:04 Dose: 0.125 mg Diltiazem HCl (Cardizem Cd) 300 mg PO DAILY [facility] Last Admin: 10/12/17 09:27 Dose: 300 mg Diphenhydramine HCl (Benadryl) 25 mg PO HS [facility] Last Admin: 10/11/17 21:12 Dose: 25 mg Furosemide (Lasix) 20 mg PO DAILY [facility] Last Admin: 10/12/17 09:27 Dose: 20 mg Isosorbide Mononitrate (Imdur Er) 30 mg PO DAILY [facility] Last Admin: 10/12/17 09:27 Dose: 30 mg Lamotrigine (Lamictal) 100 mg PO BID [facility] Last Admin: 10/12/17 09:27 Dose: 100 mg Methylprednisolone (Solu-Medrol) 40 mg IVP Q8 [facility] Last Admin: 10/12/17 13:24 Dose: 40 mg Metoprolol Tartrate (Lopressor) 100 mg PO BID [facility] Last Admin: 10/12/17 09:27 Dose: 100 mg Nicotine (Nicoderm Cq) 1 patch TD DAILY [facility] Last Admin: 10/12/17 09:28 Dose: 1 patch Pantoprazole Sodium (Protonix Ec Tab) 40 mg PO DAILY [facility] Last Admin: 10/12/17 09:27 Dose: 40 mg Potassium Chloride (K-Dur 20 Meq Er Tab) 20 meq PO DAILY [facility] Last Admin: 10/12/17 09:27 Dose: 20 meq Rosuvastatin Calcium (Crestor) 40 mg PO HS [facility] Last Admin: 10/11/17 21:12 Dose: 40 mg - Labs Labs: 10/12/17 08:07 10/12/17 08:07 PT 20.1 SECONDS (9.7-12.2) H 10/09/17 19:58 INR 1.8 10/09/17 19:58 APTT 92 SECONDS (21-34) H 10/09/17 19:58 - Constitutional Appears: Well - Head Exam Head Exam: ATRAUMATIC, NORMAL INSPECTION, NORMOCEPHALIC - Eye Exam Eye Exam: EOMI, Normal appearance, PERRL Pupil Exam: NORMAL ACCOMODATION, PERRL - ENT Exam ENT Exam: Mucous Membranes Moist, Normal Exam - Neck Exam Neck Exam: Full ROM, Normal Inspection. absent: Lymphadenopathy - Respiratory Exam Respiratory Exam: Decreased Breath Sounds - Cardiovascular Exam Cardiovascular Exam: REGULAR RHYTHM, +S1, +S2 - GI/Abdominal Exam GI & Abdominal Exam: Soft, Diminished Bowel Sounds - Rectal Exam Rectal Exam: Deferred
[2017-10-12] MEDS: Digoxin 125 mcg (0.125 mg) Tab PO SCH (17:31)
[2017-10-12 17:32] VITALS: PULSE 71
[2017-10-12 23:48] VITALS: RESP 20
[2017-10-13] MEDS: Albuterol-Ipratrop 3 mg / 0.5 (3 ml) UD INH SCH ×3 (02:48→13:22)
[2017-10-13] MEDS: MethylPREDNISolone 40 mg Vial IVP SCH ×2 (05:32→13:37)
[2017-10-13 07:38] VITALS: BP 165/69; TEMP 97.4; O2SAT 96
[2017-10-13] MEDS: diltiaZEM 300 mg/24 Hours CD Cap PO SCH (10:07)
[2017-10-13] MEDS: Pantoprazole 40 mg EC Tab PO SCH (10:07)
[2017-10-13] MEDS: Potassium Chloride 20 mEq ER Tab PO SCH (10:12)
--- NOTE | 2017-10-13 12:08 | CP.PCM.PN ---
Subjective - Date & Time of Evaluation Date of Evaluation: 10/13/17 Time of Evaluation: 12:07 - Subjective Subjective: PATIENT WAS ADMITTED FOR RAPID ATRIAL FIB AAOX3 / DENIES CHEST PAIN OR SOB Objective - Vital Signs/Intake and Output Vital Signs (last 24 hours): Temp Pulse Resp BP Pulse Ox 97.4 F L 81 20 165/69 H 96 10/13/17 07:00 10/13/17 07:00 10/13/17 07:00 10/13/17 10:08 10/13/17 07:00 Intake and Output: 10/13/17 10/13/17 06:59 18:59 Intake Total 700 Output Total 0 Balance 700 - Medications Medications: Current Medications Albuterol/Ipratropium (Duoneb 3 Mg/0.5 Mg (3 Ml) Ud) 3 ml INH RQ6 [facility] Last Admin: 10/13/17 07:42 Dose: 3 ml Amiodarone HCl (Cordarone) 200 mg PO BID [facility] Apixaban (Eliquis) 5 mg PO BID [facility] Last Admin: 10/13/17 10:07 Dose: 5 mg Aspirin (Aspirin Chewable) 81 mg PO DAILY [facility] Last Admin: 10/13/17 10:07 Dose: 81 mg Clonazepam (Klonopin) 1 mg PO HS [facility] Last Admin: 10/12/17 21:20 Dose: 1 mg Clopidogrel Bisulfate (Plavix) 75 mg PO DAILY [facility] Last Admin: 10/13/17 10:07 Dose: 75 mg Digoxin (Digoxin) 0.125 mg PO DAILY@1800 [facility] Last Admin: 10/12/17 17:31 Dose: 0.125 mg Diltiazem HCl (Cardizem Cd) 300 mg PO DAILY [facility] Last Admin: 10/13/17 10:07 Dose: 300 mg Diphenhydramine HCl (Benadryl) 25 mg PO HS [facility] Last Admin: 10/12/17 21:20 Dose: 25 mg Furosemide (Lasix) 20 mg PO DAILY [facility] Last Admin: 10/13/17 10:08 Dose: 20 mg Isosorbide Mononitrate (Imdur Er) 30 mg PO DAILY [facility] Last Admin: 10/13/17 10:13 Dose: 30 mg Lamotrigine (Lamictal) 100 mg PO BID [facility] Last Admin: 10/13/17 10:08 Dose: 100 mg Methylprednisolone (Solu-Medrol) 40 mg IVP Q8 [facility] Last Admin: 10/13/17 05:32 Dose: 40 mg Metoprolol Tartrate (Lopressor) 100 mg PO BID [facility] Last Admin: 10/13/17 10:13 Dose: 100 mg Nicotine (Nicoderm Cq) 1 patch TD DAILY [facility] Last Admin: 10/13/17 10:13 Dose: 1 patch Pantoprazole Sodium (Protonix Ec Tab) 40 mg PO DAILY [facility] Last Admin: 10/13/17 10:07 Dose: 40 mg Potassium Chloride (K-Dur 20 Meq Er Tab) 20 meq PO DAILY [facility] Last Admin: 10/13/17 10:12 Dose: 20 meq Rosuvastatin Calcium (Crestor) 40 mg PO HS [facility] Last Admin: 10/12/17 21:20 Dose: 40 mg - Labs Labs: 10/12/17 08:07 10/12/17 08:07 PT 20.1 SECONDS (9.7-12.2) H 10/09/17 19:58 INR 1.8 10/09/17 19:58 APTT 92 SECONDS (21-34) H 10/09/17 19:58 Assessment and Plan - Assessment and Plan (Free Text) Assessment: PATIENT SEEN AND EXAMINED AT THE BEDSIDE LUNG SOUND CLEAR AMIODARONE DOSE INCREASE / RATE CONTROL DISCUSS WITH DR Sylvia SANTORO AND DR CONTE WHO CLEAR FOR DC AND F/U WITH HIS CHEMICAL PROJECT ENGINEER OUT PATIENT FOLLOW UP WITH DR Sylvia SANTORO IN HIS OFFICE IN 1 2 WEEK -----CALL FOR APPOINTMENT FOLLOW UP WITH YOUR CHEMICAL PROJECT ENGINEER DR MARTEL THIS WEEK AT HIS OFFICE ---CALL FOR APPOINTMENT PATIENT STATE THAT HE SCHEDULE AN APPOINTMENT THIS FRIDAY CONTINUE HOME MEDICATION NEW PRESCRIPTION GIVEN VENTOLIN HFA 2 PUFF PRN FOR BROCHOSPASM AMIODARONE 200 MG PO BID PREDNISONE 20 MG PO DAILY TAPER DOSE ACTIVITY TOLERATED CALL DR Sylvia SANTORO OR YOUR CHEMICAL PROJECT ENGINEER IF SYMPTOMS RETURN OR WORSENING DISCUSS WITH PATIENT WHO AGREE AND VERBALIZED UNDERSTANDING
[2017-10-13 15:21] VITALS: PULSE 88
== END 2017-10-13 17:07 | disposition home or self-care (01) | DRG 310 ==
LOC: C.ER 19:41 → C.9E 20:39 → C.5S 21:40 → OBSVTOIN 10-10 15:21
PROVIDERS: ADMIT Internal Medicine Nephrology; ATTEND Internal Medicine Nephrology
DX: I48.91 Unspecified atrial fibrillation (principal); I35.9 Nonrheumatic aortic valve disorder, unspecified; I50.9 Heart failure, unspecified; I25.10 Atherosclerotic heart disease of native coronary artery without angina pectoris; I11.0 Hypertensive heart disease with heart failure; F31.9 Bipolar disorder, unspecified; E78.5 Hyperlipidemia, unspecified; Z87.891 Personal history of nicotine dependence; Z95.5 Presence of coronary angioplasty implant and graft